=== PATIENT | female | born 1990 | race Caucasian/White ===

== ENCOUNTER 2016-05-19 22:22 | Outpatient (CLI) | payer OTHER ==
[~2016-05-19] VITALS: Ht 160 cm; Wt 92.5 kg
[~2016-05-19 22:22] MED LIST: ?ANTIBIOTIC; ACET1TAB43 PO; CIPR-225 PO; DIPH1TAB25 PO; DOCU100C37 PO; FERR-74 PO; FRS325T PO; HYDR-3812 PO; HYOS0.1217 PO; IBUP-1773 PO; MEDR150D8 IM; OMEP20TA7 PO; ONDA4TAB8 PO; ONDA4TAB8 SL; PREN-93 PO; PREN1TAB71 PO
[2016-05-19 22:38] VITALS: BP 131/81
[2016-05-19 22:52] LABS: BILIRUBIN,URINE 1+ (NEGATIVE); KETONES,URINE NEGATIVE (NEGATIVE); LEUKOCYTE ESTERASE ,URINE 1+ (NEGATIVE); NITRITE,URINE NEGATIVE (NEGATIVE); PH,URINE 6.5 (5-9); PROTEIN,URINE 2+ (NEGATIVE); UROBILINOGEN,URINE 4 MG/DL (NORMAL)
[2016-05-19] MEDS ORDERED: PREN-37 PO (22:55)
[2016-05-19] MEDS ORDERED: ONDANSETRON 4 MG/2 ML (SDV) Z0FRAN IVP ONE (23:15)
[2016-05-19] MEDS ORDERED: D5 LR IV SOLUTION 1,000 ML IV ONE (23:15)
[2016-05-19 23:48] LABS: BASOPHILS % (AUTO) 0 % (0-10); EOSINOPHILS # (AUTO) 0.2 10^3/uL (0.0-0.3); EOSINOPHILS % (AUTO) 2 % (0-10); LYMPHOCYTES # (AUTO) 1.7 X 10^3 (1.0-4.0); LYMPHOCYTES % (AUTO) 13 % (12-44); MEAN CORPUSCULAR HEMOGLOBIN 32 PG (25-34); MEAN CORPUSCULAR HGB CONC 36 G/DL (32-36); MEAN CORPUSCULAR VOLUME 88 FL (80-99); MEAN PLATELET VOLUME 9.5 FL (7.4-10.4); MONOCYTES # (AUTO) 1.1 X 10^3 (0.0-1.0); MONOCYTES % (AUTO) 9 % (0-12); NEUTROPHILS # (AUTO) 9.7 X 10^3 (1.8-7.8); NEUTROPHILS % (AUTO) 77 % (42-75); PLATELET COUNT 257 10^3/uL (130-400); RED CELL DISTRIBUTION WIDTH 12.4 % (10.0-14.5); WHITE BLOOD COUNT 12.7 10^3/uL (4.3-11.0)
[2016-05-20] LABS: ALANINE AMINOTRANSFERASE 9 U/L (0-55); ALBUMIN 3.4 G/DL (3.2-4.5); AMYLASE 65 U/L (25-125); ANION GAP 12 MMOL/L (5-14); ASPARTATE AMINO TRANSFERASE 9 U/L (5-34); BILIRUBIN,TOTAL 0.3 MG/DL (0.1-1.0); BLOOD UREA NITROGEN 7 MG/DL (7-18); BUN/CREATININE RATIO 10; CALCIUM 8.5 MG/DL (8.5-10.1); CARBON DIOXIDE 18 MMOL/L (21-32); CHLORIDE 107 MMOL/L (98-107); CREATININE SERUM 0.69 MG/DL (0.60-1.30); GFR ESTIMATED > 60; GLUCOSE 84 MG/DL (70-105); LIPASE 41 U/L (8-78); POTASSIUM 3.4 MMOL/L (3.6-5.0); SODIUM 137 MMOL/L (135-145)
--- NOTE | 2016-05-20 11:21 | Physician Query-Final Dx ---
DEBBY IRWIN 05/20/16 1121: Clinic Account Progress/Dx Physician Query: Please give diagnosis Date of Service May 19, 2016 at 22:22 JACOBY JOHN MD 05/21/16 1303: Clinic Account Progress/Dx DIAGNOSIS: Diagnosis Nausea and vomiting in DEBBY IRWIN May 20, 2016 11:21 JACOBY JOHN MD May 21, 2016 13:03
[2016-08-14] MEDS ORDERED: IBUP-1773 PO (09:59)
== END 2016-05-20 00:57 | disposition home or self-care (01) ==
LOC: WSo 22:22 → LDRP 22:23 → WSo 05-20 00:57
PROVIDERS: ATTEND Obstetrics & Gynecology
DX: O21.9 Vomiting of pregnancy, unspecified (principal); Z3A.27 27 weeks gestation of pregnancy
CPT/HCPCS: 36415; 80053; 81000; 82150; 83690; 85025; 96360; 99213

== ENCOUNTER → 2016-07-16 | Outpatient (CLI) | payer OTHER ==
[~2016-07-16] MED LIST changes: +PREN-37 PO
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
--- NOTE | 2016-07-16 16:57 | Diagnostic Imaging Report ---
INDICATION: Decreased movements GESTATIONAL AGE: Estimated gestational age by first sono is 36 weeks and 2 days COMPARISON: None available. Biophysical Profile Score: Movement: 2 Breathin Tone: 2 Fluid: 2 Total: 12/07 Heart Rate: 140 BPM Presentation is cephalic. Placenta is posterior. SOWMYA is 8.95 cm. The single largest vertical pocket is 4 cm. Average ultrasound age is 35 weeks and 3 days (+/-3 weeks and 0 days). Estimated weight is 2612 g (+/-381 g). Based on AUA, this is 38 percentile. Based on LMP, this is 24th percentile. IMPRESSION: 1. Normal Biophysical Profile Score. 2. weight and percentiles are described above. Dictated by: Dictated on workstation # [id number]
== END ==
LOC: RAD 14:35
PROVIDERS: ATTEND Obstetrics & Gynecology
DX: O36.8131 Decreased fetal movements, third trimester, fetus 1 (principal); Z3A.35 35 weeks gestation of pregnancy
CPT/HCPCS: 76805; 76819

== ENCOUNTER 2016-07-18 19:35 | Outpatient (CLI) | payer OTHER ==
[~2016-07-18] VITALS: Ht 165.1 cm; Wt 91.6 kg
--- OUTSIDE RECORDS SUMMARY | 2016-07-18 19:39 | XMS REPORT | Continuity of Care Document ---
Author Author Replaced By [facility] Address Unknown Phone Unavailable Allergies Active Description Code Type Severity Reaction Onset Reported/Identified Relationship to Patient Clinical Status Yes No Known Drug Allergies [id number] Drug Allergy Unknown N/ A 01/18/2011 Medications [...] USE DISORDER COMP PREG/CHILDBIRT 01/22/2011 Ot V06.4 [id number] 01/22/2011 Ot V27.0 DELIVER-SINGLE LIVEBORN 02/04/2011 KAREN [...] NEC-DELIV 12/26/2014 PAM KIMBALL DO Ot V06.1 [id number], COMBINED [ 12/26/2014 PAM KIMBALL DO Ot [...] By Performed On 73.4 01/18/2011 73.59 01/20/2011 [id number] TEST, URINE (IN-HOUSE) 04/20/2014 73.59 12/25/2014 Results [...] 20:02 Serum or plasma choriogonadotropin measurement (units/volume) 52049 m[iU]/mL <5 Complete urinalysis with reflex to [...] Status Pt. Type Provider Facility Loc./Unit Complaint [id number] 04/20/2014 11:13:00 04/20/2014 23: 59:59 [facility] KAREN HARRIS DO
[2016-07-18 19:50] VITALS: BP 136/83
[2016-07-18 19:53] LABS: BILIRUBIN,URINE NEGATIVE (NEGATIVE); KETONES,URINE NEGATIVE (NEGATIVE); LEUKOCYTE ESTERASE ,URINE 1+ (NEGATIVE); NITRITE,URINE NEGATIVE (NEGATIVE); PH,URINE 6.5 (5-9); PROTEIN,URINE 1+ (NEGATIVE); UROBILINOGEN,URINE NORMAL (NORMAL)
[2016-07-18 20:02] LABS: WBC,URINE 0-2 /HPF
--- NOTE | 2016-07-19 14:44 | Physician Query-Final Dx ---
ELOY DORAN 07/19/16 1444: Clinic Account Progress/Dx Physician Query: Please give diagnosis Date of Service Jul 18, 2016 at 19:35 JACOBY JOHN MD 07/20/16 0924: Clinic Account Progress/Dx DIAGNOSIS: Diagnosis Abdominal pain in ANDREEA,ELOY Jul 19, 2016 14:44 JACOBY JOHN MD Jul 20, 2016 09:24
[2016-08-14] MEDS ORDERED: IBUP-1773 PO (09:59)
== END 2016-07-18 21:00 | disposition home or self-care (01) ==
LOC: LDRP 19:35 → WSo 19:35
PROVIDERS: ATTEND Obstetrics & Gynecology
DX: O99.89 Other specified diseases and conditions complicating pregnancy, childbirth and the puerperium (principal); R10.9 Unspecified abdominal pain
CPT/HCPCS: 81000; 99213

== ENCOUNTER 2016-08-11 12:03 | Outpatient (CLI) | payer OTHER ==
[~2016-08-11] VITALS: Ht 167.6 cm; Wt 94.1 kg
[2016-08-11 12:33] LABS: BILIRUBIN,URINE NEGATIVE (NEGATIVE); KETONES,URINE NEGATIVE (NEGATIVE); LEUKOCYTE ESTERASE ,URINE 1+ (NEGATIVE); NITRITE,URINE NEGATIVE (NEGATIVE); PH,URINE 7 (5-9); PROTEIN,URINE 1+ (NEGATIVE); UROBILINOGEN,URINE NORMAL (NORMAL)
[2016-08-11 12:44] LABS: WBC,URINE 0-2 /HPF
[2016-08-11 13:15] VITALS: BP 123/82
--- NOTE | 2016-08-11 14:51 | Diagnostic Imaging Report ---
EXAMINATION: OB ultrasound. INDICATION: Biophysical profile evaluation for decreased movement. FINDINGS: The heart rate is 144 BPM. The presentation is cephalic. There is an adequate amount of amniotic fluid with a total score of 8.4. There are normal parameters of the biophysical profile seen with a total score of 8 out of 8 points. IMPRESSION: The total biophysical profile score is 8 out of 8 points. Dictated by: Dictated on workstation # [id number]
--- NOTE | 2016-08-12 14:52 | Physician Query-Final Dx ---
DEBBY IRWIN 08/12/16 1452: Clinic Account Progress/Dx Physician Query: Please give diagnosis Date of Service Aug 11, 2016 at 12:03 JACOBY JOHN MD 08/18/16 0846: Clinic Account Progress/Dx DIAGNOSIS: Diagnosis Contractions in third trimester DEBBY IRWIN Aug 12, 2016 14:52 JACOBY JOHN MD Aug 18, 2016 08:46
[2016-08-14] MEDS ORDERED: IBUP-1773 PO (09:59)
== END 2016-08-11 14:20 | disposition home or self-care (01) ==
LOC: LDRP 12:03 → WSo 12:03
PROVIDERS: ATTEND Obstetrics & Gynecology
DX: O47.1 False labor at or after 37 completed weeks of gestation (principal); Z3A.39 39 weeks gestation of pregnancy
CPT/HCPCS: 76819; 81000; 87088; 99213

== ENCOUNTER 2016-08-12 10:56 | Inpatient (IN) | payer OTHER ==
[~2016-08-12] VITALS: Ht 167.6 cm; Wt 94.1 kg
[2016-08-12] VITALS (41 sets, daily range): BP systolic 120–165; BP diastolic 68–91
[2016-08-12] MEDS ORDERED: D5 LR IV SOLUTION 1,000 ML IV ONE (11:06)
[2016-08-12] MEDS ORDERED: AMPICILLIN 2000 MG INJECTION (IM/IV) ONE (11:06)
[2016-08-12] MEDS ORDERED: NS (IVPB) 50 ML ONE (11:07)
[2016-08-12] MEDS ORDERED: D5 LR IV SOLUTION 1,000 ML IV SCH (11:32)
[2016-08-12] MEDS ORDERED: MINERAL OIL CONCENTRATE 99.9% 15 ML UDC TOP PRN (11:45)
[2016-08-12] MEDS ORDERED: LIDOCAINE/EPI 1%-1:200,000 (XYLOCAINE) 30 ML VIAL INJ PRN (11:45)
[2016-08-12] MEDS ORDERED: CATHETER FLUSH 10 ML SYR IV PRN (11:45)
[2016-08-12] MEDS ORDERED: AMPICILLIN INJECTION 2,000 MG in NS (IVPB) 50 ML IV ONE (12:00)
[2016-08-12 12:04] LABS: BASOPHILS % (AUTO) 0 % (0-10); EOSINOPHILS # (AUTO) 0.1 10^3/uL (0.0-0.3); EOSINOPHILS % (AUTO) 1 % (0-10); LYMPHOCYTES # (AUTO) 2.5 X 10^3 (1.0-4.0); LYMPHOCYTES % (AUTO) 25 % (12-44); MEAN CORPUSCULAR HEMOGLOBIN 30 PG (25-34); MEAN CORPUSCULAR HGB CONC 35 G/DL (32-36); MEAN CORPUSCULAR VOLUME 86 FL (80-99); MEAN PLATELET VOLUME 10.2 FL (7.4-10.4); MONOCYTES # (AUTO) 1.1 X 10^3 (0.0-1.0); MONOCYTES % (AUTO) 11 % (0-12); NEUTROPHILS # (AUTO) 6.5 X 10^3 (1.8-7.8); NEUTROPHILS % (AUTO) 63 % (42-75); PLATELET COUNT 249 10^3/uL (130-400); RED BLOOD COUNT 4.57 10^6/uL (4.35-5.85); RED CELL DISTRIBUTION WIDTH 13.5 % (10.0-14.5); WHITE BLOOD COUNT 10.2 10^3/uL (4.3-11.0)
[2016-08-12] MEDS: AMPICILLIN INJECTION 1,000 MG in NS (IVPB) 50 ML IV SCH ×2 (15:51→19:20)
[2016-08-12] MEDS ORDERED: OXYTOCIN/NORMAL SALINE 500 ML IV SCH ×2 (17:14→19:49)
[2016-08-12] MEDS ORDERED: SUFENTA 0.6MCG/ML BUPIVA 0.125 100 ML ONE (17:56)
[2016-08-12] MEDS ORDERED: fentaNYL INJECTION 100 MCG/2 ML AMP IVP ONE ×2 (18:00→18:45)
[2016-08-12] MEDS ORDERED: BUPIVACAINE 0.25% 30 ML (SENSORCAINE) VIAL ONE (18:04)
[2016-08-12] MEDS ORDERED: LACTATED RINGERS 1,000 ML IV SCH (18:32)
[2016-08-12] MEDS ORDERED: BUPIVACAINE 0.25% 30 ML (SENSORCAINE) VIAL INJ ONE (18:45)
[2016-08-12] MEDS ORDERED: NALOXONE 0.4 MG/ML 1 ML (NARCAN) VIAL IV PRN ×2 (18:45)
[2016-08-12] MEDS ORDERED: ONDANSETRON 4 MG/2 ML (SDV) Z0FRAN IV PRN (18:45)
[2016-08-12] MEDS ORDERED: METOCLOPRAMIDE INJ 10 MG/2 ML (REGLAN) IV PRN (18:45)
[2016-08-12] MEDS ORDERED: diphenhydrAMINE 50 MG/ML INJ (BENADRYL) IV PRN (18:45)
[2016-08-12] MEDS ORDERED: EPIDURAL (SUFENTA 0.6MCG/ML BUPIVA 0.125%) 100 ML BAG EPI SCH (18:45)
--- NOTE | 2016-08-12 19:59 | OB Labor & Delivery Record ---
Vag Delivery Note Vag Delivery Note Date of Delivery: 08/12/16 Preoperative Diagnosis: Cris Oglesby is a 25 year old at 39 3/7 weeks who presented in labor, GBS + Postoperative Diagnosis: Same Surgeon: PAM KIMBALL Anesthesia:epidural Delivery Type: Findings: [] Viable male , apgars 9/9, weight 6#5oz Lacerations: Intact placenta with 3 vessel cord. Nuchal cord x 1 delivered through, compound presentation with hand at chin, no body cord or shoulder dystocia Estimated Blood Loss: 150 ml Complications: None Condition: Stable Description of Procedure: The patient is a 25 year old at 39 3/7 weeks who presented in labor, GBS + . She was admitted and informed consent was obtained. Ampicillin was started for GBS+ Received 3 doses received (4 grams total). Her labor course was remarkable for AROM, epidural and augmentation with pitocin but only 2 mu. She progressed to complete dilatation and began to push. She was then set up for delivery. The 's head was delivered atraumatically in the TERELL position/compound presentation. The shoulders and remainder of the 's body were then delivered without difficulty. Upon delivery, the head was held below the level of the perineum and the mouth and nares were bulb suctioned. The cord was doubly clamped and cut and the infant was handed off to the pediatric staff. An intact placenta with 3-vessel cord delivered via Johan and there was found to be minimal bleeding.~ Vigorous fundal massage was performed and the fundus was found to be firm. IV oxytocin was given. Examination of the vagina and perineum revealed a r periurethral laceration that was not repaired. Following the delivery, sponge, instrument and needle counts were correct. Mom and baby were both in stable condition in the labor suite. Vitals - Labs Labs Laboratory Tests 08/12/16 11:28: White Blood Count 10.2, Red Blood Count 4.57, Hemoglobin 13.8, Hematocrit 40, Mean Corpuscular Volume 86, Mean Corpuscular Hemoglobin 30, Mean Corpuscular Hemoglobin Concent 35, Red Cell Distribution Width 13.5, Platelet Count 249, Mean Platelet Volume 10.2, Neutrophils (%) (Auto) 63, Lymphocytes (%) (Auto) 25 , Monocytes (%) (Auto) 11, Eosinophils (%) (Auto) 1, Basophils (%) (Auto) 0, Neutrophils # (Auto) 6.5, Lymphocytes # (Auto) 2.5, Monocytes # (Auto) 1.1H, Eosinophils # (Auto) 0.1, Basophils # (Auto) 0.0 PAM KIMBALL DO Aug 12, 2016 19:59
[2016-08-12] MEDS ORDERED: DIBUCAINE (NUPERCAINAL) 1% OINT 30 GM TOP PRN (20:00)
[2016-08-12] MEDS ORDERED: APAP 300 MG/CODEINE 30 MG (TYLENOL #3) TAB PO PRN (20:00)
[2016-08-12] MEDS ORDERED: WITCH HAZEL(TUCKS) 40 EA JAR TOP PRN (20:00)
[2016-08-12] MEDS ORDERED: BENZOCAINE/MENTHOL (DERMOPLAST) 56 ML CAN TP PRN (20:00)
[2016-08-12] MEDS ORDERED: TETANUS,DIPTH,PERTUSS P/F (BOOSTRIX) 0.5 ML VIAL IM ONE (20:00)
[2016-08-12] MEDS ORDERED: MEASLES,MUMPS,RUBELLA 1 EA INJ SQ ONE (20:00)
[2016-08-12] MEDS ORDERED: CATHETER FLUSH 10 ML SYR IV SCH (22:00)
[2016-08-12] MEDS: IBUPROFEN 600 MG (MOTRIN) TAB PO SCH (22:38)
[2016-08-13] VITALS: BP 116/63
[2016-08-13 04:00] VITALS: BP 128/84
[2016-08-13] MEDS: IBUPROFEN 600 MG (MOTRIN) TAB PO SCH ×3 (04:03→17:04)
[2016-08-13 06:47] LABS: BASOPHILS % (AUTO) 0 % (0-10); EOSINOPHILS # (AUTO) 0.1 10^3/uL (0.0-0.3); EOSINOPHILS % (AUTO) 1 % (0-10); LYMPHOCYTES # (AUTO) 3.4 X 10^3 (1.0-4.0); LYMPHOCYTES % (AUTO) 28 % (12-44); MEAN CORPUSCULAR HEMOGLOBIN 30 PG (25-34); MEAN CORPUSCULAR HGB CONC 34 G/DL (32-36); MEAN CORPUSCULAR VOLUME 88 FL (80-99); MEAN PLATELET VOLUME 10.7 FL (7.4-10.4); MONOCYTES # (AUTO) 0.9 X 10^3 (0.0-1.0); MONOCYTES % (AUTO) 8 % (0-12); NEUTROPHILS # (AUTO) 7.6 X 10^3 (1.8-7.8); NEUTROPHILS % (AUTO) 63 % (42-75); PLATELET COUNT 194 10^3/uL (130-400); RED BLOOD COUNT 4.25 10^6/uL (4.35-5.85); RED CELL DISTRIBUTION WIDTH 13.5 % (10.0-14.5)
[2016-08-13 08:00] VITALS: BP 132/87
[2016-08-13] MEDS ORDERED: TETANUS,DIPTH,PERTUSS P/F (BOOSTRIX) 0.5 ML VIAL IM ONE (10:39)
--- NOTE | 2016-08-13 10:42 | Postpartum Progress Note ---
Note Note Day # 1 Subjective: Patient is without complaints. Ambulating, voiding. Tolerating a regular diet without nausea or vomiting. Normal lochia. Pain is well controlled with oral pain medications. clara Objective: Vital Sign - Last 12Hours 08/13/16 08/13/16 08/13/16 00:00 04:00 08:00 Temp 96.8 96.0 97.0 Pulse 65 57 90 Resp 17 18 20 B/P (MAP) 116/63 128/84 132/87 Pulse Ox 97 99 98 O2 Delivery Room Air Room Air Room Air Intake and Output 08/13/16 00:00 Intake Total 2150 ml Balance 2150 ml Laboratory Tests Test 08/12/16 11:28 08/13/16 06:00 Range/Units White Blood Count 10.2 12.0 H 4.3-11.0 10^3/uL Red Blood Count 4.57 4.25 L 4.35-5.85 10^6/uL Hemoglobin 13.8 12.8 11.5-16.0 G/DL Hematocrit 40 38 35-52 % Mean Corpuscular Volume 86 88 80-99 FL Mean Corpuscular Hemoglobin 30 30 25-34 PG Mean Corpuscular Hemoglobin Concent 35 34 32-36 G/DL Red Cell Distribution Width 13.5 13.5 10.0-14.5 % Platelet Count 249 194 130-400 10^3/uL Mean Platelet Volume 10.2 10.7 H 7.4-10.4 FL Neutrophils (%) (Auto) 63 63 42-75 % Lymphocytes (%) (Auto) 25 28 12-44 % Monocytes (%) (Auto) 11 8 0-12 % Eosinophils (%) (Auto) 1 1 0-10 % Basophils (%) (Auto) 0 0 0-10 % Neutrophils # (Auto) 6.5 7.6 1.8-7.8 X 10^3 Lymphocytes # (Auto) 2.5 3.4 1.0-4.0 X 10^3 Monocytes # (Auto) 1.1 H 0.9 0.0-1.0 X 10^3 Eosinophils # (Auto) 0.1 0.1 0.0-0.3 10^3/uL Basophils # (Auto) 0.0 0.0 0.0-0.1 10^3/uL Physical Exam: General - Alert and oriented, no apparent distress Abdomen - Soft, appropriately tender to palpation, non-distended, fundus firm at umbilicus Extremities - no edema, negative Ranulfo's bilaterally Assessment: 1. post- day # 1, status post vaginal delivery. Recovering well, hemodynamically stable Plan: Routine care. Encourage breast feeding. Encourage ambulation. Ferrous sulfate supplementation. Plan for discharge [] Vitals - Labs Vital Signs - I&O Vital Signs Date Time Temp Pulse Resp B/P (MAP) Pulse Ox O2 Delivery O2 Flow Rate FiO2 08/13/16 08:00 97.0 90 20 132/87 98 Room Air 08/13/16 04:00 96.0 57 18 128/84 99 Room Air 08/13/16 00:00 96.8 65 17 116/63 97 Room Air 08/12/16 22:15 97.6 76 18 130/77 97 Room Air 08/12/16 21:55 68 18 131/77 100 Room Air 08/12/16 21:25 70 18 135/73 100 Room Air 08/12/16 20:45 99.0 86 18 141/81 100 Room Air 08/12/16 20:30 99.1 56 18 144/91 100 Room Air 08/12/16 20:15 99.3 72 18 141/85 100 Room Air 08/12/16 20:00 99.6 84 18 136/86 100 Room Air 08/12/16 19:45 99.4 85 18 140/73 100 Room Air 08/12/16 19:30 75 18 155/81 08/12/16 19:15 72 18 142/85 08/12/16 18:56 81 18 132/68 100 Room Air 08/12/16 18:52 89 18 137/74 100 Room Air 08/12/16 18:41 87 18 131/74 98 Room Air 08/12/16 18:35 89 18 138/76 98 Room Air 08/12/16 18:31 93 18 140/87 100 Room Air 08/12/16 18:28 95 18 145/86 98 Room Air 08/12/16 18:25 80 18 153/76 97 Room Air 08/12/16 18:22 91 18 165/78 97 Room Air 08/12/16 18:06 67 18 154/84 100 Room Air 08/12/16 17:37 99.8 67 18 131/73 08/12/16 17:22 72 18 128/76 08/12/16 17:07 80 18 126/82 08/12/16 16:50 79 18 128/79 08/12/16 16:36 77 18 129/76 08/12/16 16:21 91 18 130/84 08/12/16 16:10 83 18 131/83 08/12/16 15:51 84 18 132/83 08/12/16 15:35 81 18 133/81 08/12/16 15:22 81 18 135/88 08/12/16 14:51 80 18 135/86 08/12/16 14:27 89 18 125/82 08/12/16 14:22 98.9 85 18 131/84 08/12/16 14:06 89 18 125/82 08/12/16 13:36 84 18 126/84 08/12/16 13:21 95 18 120/82 08/12/16 13:07 88 18 128/84 08/12/16 12:50 78 18 123/78 08/12/16 12:36 77 18 123/85 08/12/16 12:23 87 18 124/83 08/12/16 12:05 88 18 126/85 08/12/16 11:24 99.8 80 18 132/77 I & O 08/13/16 07:00 Intake Total 2150 ml Balance 2150 ml Labs Laboratory Tests 08/12/16 11:28: White Blood Count 10.2, Red Blood Count 4.57, Hemoglobin 13.8, Hematocrit 40, Mean Corpuscular Volume 86, Mean Corpuscular Hemoglobin 30, Mean Corpuscular Hemoglobin Concent 35, Red Cell Distribution Width 13.5, Platelet Count 249, Mean Platelet Volume 10.2, Neutrophils (%) (Auto) 63, Lymphocytes (%) (Auto) 25 , Monocytes (%) (Auto) 11, Eosinophils (%) (Auto) 1, Basophils (%) (Auto) 0, Neutrophils # (Auto) 6.5, Lymphocytes # (Auto) 2.5, Monocytes # (Auto) 1.1H, Eosinophils # (Auto) 0.1, Basophils # (Auto) 0.0 08/13/16 06:00: White Blood Count 12.0H, Red Blood Count 4.25L, Hemoglobin 12.8, Hematocrit 38, Mean Corpuscular Volume 88, Mean Corpuscular Hemoglobin 30, Mean Corpuscular Hemoglobin Concent 34, Red Cell Distribution Width 13.5, Platelet Count 194, Mean Platelet Volume 10.7H, Neutrophils (%) (Auto) 63, Lymphocytes (%) (Auto) 28 , Monocytes (%) (Auto) 8, Eosinophils (%) (Auto) 1, Basophils (%) (Auto) 0, Neutrophils # (Auto) 7.6, Lymphocytes # (Auto) 3.4, Monocytes # (Auto) 0.9, Eosinophils # (Auto) 0.1, Basophils # (Auto) 0.0 PAM KIMBALL DO Aug 13, 2016 10:42
[2016-08-13] MEDS: DOCUSATE SODIUM 100 MG (COLACE) CAP PO SCH ×2 (10:48→14:23)
[2016-08-13] MEDS: PRENATAL VITAMIN 1 EA TAB PO SCH (10:48)
[2016-08-13] MEDS: FERROUS SULF 325 MG (IRON) TAB PO SCH (10:48)
[2016-08-13 11:56] VITALS: BP 126/84
--- NOTE | 2016-08-13 14:08 | Anesthesia-Regional Post-Op ---
Regional Patient Condition Mental Status: Alert, Oriented x3 Circulation: Same as Pre-Op Headache: Absent Sensation: Full Recovery Motor Block: Absent Post Op Complications Complications None Follow Up Care/Instructions Patient Instructions None needed. Anesthesia/Patient Condition Patient is doing well, no complaints, stable vital signs, no apparent adverse anesthesia problems. MATI VEGA DO Aug 13, 2016 14:08
[2016-08-13 16:00] VITALS: BP 117/79
[2016-08-14 00:04] VITALS: BP 127/82
[2016-08-14] MEDS: IBUPROFEN 600 MG (MOTRIN) TAB PO SCH ×2 (00:04→08:00)
[2016-08-14] MEDS: DOCUSATE SODIUM 100 MG (COLACE) CAP PO SCH ×2 (00:04→08:07)
[2016-08-14 05:00] VITALS: BP_SYST 111; BP_SYST 148; BP_DIAS 63; BP_DIAS 96
[2016-08-14 07:59] VITALS: BP 129/84
[2016-08-14] MEDS: FERROUS SULF 325 MG (IRON) TAB PO SCH (08:07)
[2016-08-14] MEDS: PRENATAL VITAMIN 1 EA TAB PO SCH (08:07)
[2016-08-14] MEDS ORDERED: IBUP-1773 PO (09:59)
--- NOTE | 2016-08-14 10:01 | Discharge Inst-Women's Service ---
Discharge Inst-Women's Serv Depart Medication/Instructions New, Converted or Re-Newed RX: Transmitted to Pharmacy Final Diagnosis GBS + vaginal delivery Consults/Follow Up Additional Follow Up: Yes (6 weeks) Activity Activity: Activity as Tolerated Driving Instructions: You May Drive NO SMOKING: NO SMOKING Nothing Inside Vagina: No Douching, No [place], No Tampons Diet Discharge Diet: No Restrictions Symptoms to Report to : Swelling Increased, Bleeding Excessive, Fever Over 101 Degrees F, Vaginal Bleeding Increase, Vaginal Discharge Foul For Any Problems or Questions: Contact Your Physician PAM KIMBALL DO Aug 14, 2016 10:01
--- NOTE | 2016-08-14 10:02 | Postpartum Progress Note ---
Note Note Day # 1 Subjective: Patient is without complaints. Ambulating, voiding. Tolerating a regular diet without nausea or vomiting. Normal lochia. Pain is well controlled with oral pain medications. bottle feeding Physical Exam: General - Alert and oriented, no apparent distress Abdomen - Soft, appropriately tender to palpation, non-distended, fundus firm at umbilicus Extremities - no edema, negative Ranulfo's bilaterally Assessment: 1. post- day # 1, status post vaginal delivery. Recovering well, hemodynamically stable Plan: Routine care. Encourage breast feeding. Encourage ambulation. Ferrous sulfate supplementation. Plan for discharge today Vitals - Labs Vital Signs - I&O Vital Signs Date Time Temp Pulse Resp B/P (MAP) Pulse Ox O2 Delivery O2 Flow Rate FiO2 08/14/16 07:59 96.6 108 18 129/84 99 Room Air 08/14/16 05:00 98.1 54 18 148/96 100 Room Air 08/14/16 00:04 97.0 56 18 127/82 98 Room Air 08/13/16 16:00 98.6 76 18 117/79 98 Room Air 08/13/16 11:56 98.1 77 20 126/84 93 Room Air PAM KIMBALL DO Aug 14, 2016 10:02
== END 2016-08-14 14:40 | disposition home or self-care (01) | DRG 775 ==
LOC: LDRP 10:56
PROVIDERS: ADMIT Obstetrics & Gynecology; ATTEND Obstetrics & Gynecology
PROC: 10E0XZZ Delivery of Products of Conception, External Approach (ICD-10-PCS; principal; 2016-08-12)
DX: O99.824 Streptococcus B carrier state complicating childbirth (principal); O69.81X0 Labor and delivery complicated by cord around neck, without compression, not applicable or unspecified; Z3A.39 39 weeks gestation of pregnancy; Z37.0 Single live birth; Z23 Encounter for immunization
CPT/HCPCS: 36415; 85025; 86850; 86900; 86901; 90715

== ENCOUNTER → 2018-05-01 | Emergency (ER) | payer OTHER ==
[~2018-05-01] VITALS: Ht 167.6 cm; Wt 81.6 kg
[~2018-05-01] MED LIST changes: +ACHD5005 PO; -FERR-74 PO; +FERR325T18 PO; -HYDR-3812 PO; +IOHEXOL 350 MG/ML 100 ML (OMNIPAQUE 350) VIAL IV ONE; +LACTATED RINGERS 1,000 ML IV ONE; +NS 100 ML (IVPB) BAG IV ONE; +ONDA8TAB13 PO; +ONDANSETRON 4 MG/2 ML (SDV) Z0FRAN IVP ONE; +PANT40TA2 PO; +PANTOPRAZOLE 40 MG (PROTONIX) VIAL IV ONE; +RX-ONDANSETRON 4 MG ODT (ZOFRAN) PPK #4 PO STA
--- OUTSIDE RECORDS SUMMARY | 2018-05-01 21:37 | XMS REPORT ---
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 Name Role Phone BRUNILDA PAINTING Unavailable PROBLEMS Type Condition ICD9-CM Code [id number] Code Onset Dates Condition Status SNOMED Code Problem Adjustment disorder with disturbance of emotion F43.29 Active 75716804 Problem Normal in first trimester Z34.91 Active 03296596 Problem Nausea/vomiting in O21.9 Active 07352680 ALLERGIES No Known Allergies ENCOUNTERS Encounter Location Date Diagnosis [facility] [address] [id number] Jun, External hemorrhoid K64.4 [facility] [address] [address] 15 Sep, 2016 Adjustment disorder with disturbance of emotion F43.29 and Post- depression F53 [facility] [address] [address] Dec, [facility] [address] [address] Dec, [facility] [address] [id number] Nov, Normal in first trimester Z34.91 ; 7 weeks gestation of Z3A.01 and Nausea/vomiting in O21.[address] [id number] Nov, [facility] [address] [id number] Nov, Positive test Z32.01 [facility] [address] [id number] Nov, Dental caries K02.9 and Dental examination Z01.20 [facility] [address] [id number] August, Menometrorrhagia N92.1 and Encounter for initial prescription of contraceptive pills Z30.[address] [place] [id number] Jun, Abnormal uterine bleeding N93.9 [facility] [address] [address] Jun, Elevated liver enzymes R74.8 and Urinary tract infection without hematuria, site unspecified N39.0 [facility] [address] [address] Jun, Elevated liver enzymes R74.8 and Urinary tract infection without hematuria, site unspecified N39.0 [facility] [id number] [place] [address] Jun, [facility] [id number] [place] [address] Jun, [facility] [id number] [place] [address] Jun, Elevated liver enzymes R74.8 and Urinary tract infection without hematuria, site unspecified N39.0 [facility] [id number] [place] [address] Jun, Elevated liver enzymes R74.8 ; Urinary tract infection without hematuria, site unspecified N39.0 and Gastritis K29.70 [facility] [id number] [place] [address] Jun, [id number] [place] [id number] Apr, Evaluation for contraceptive injection Z30.013 [address] [place] [id number] Jun, [facility] [address] [address] Jun, [facility] [address] [address] Apr, [facility] [address] [address] Apr, [facility] [address] [id number] [id number] Oct, [facility] [id number] [id number] Jul, [facility] [address] [id number] Jun, [facility] [id number] [place] [address] Mar, [facility] [address] [id number] [address] Dec, [facility] [id number] [place] [address] Dec, [facility] [address] [address] Nov, [facility] [id number] [address] Oct, [facility] [address] [address] Sep, IMMUNIZATIONS No Known Immunizations SOCIAL HISTORY Never Assessed REASON FOR VISIT possible wart around rectum Nirav RN PLAN OF CARE Activity Details Follow Up prn Reason: VITAL SIGNS Height 66.0 in 2017-07-13 Weight 214.2 lbs 2017-07-13 Temperature 98.6 degrees Fahrenheit 2017-07-13 Heart Rate 106 bpm 2017-07-13 Respiratory Rate 18 2017-07-13 BMI 34.57 kg/m2 2017-07-13 Blood pressure systolic 122 mmHg 2017-07-13 Blood pressure diastolic 78 mmHg 2017-07-13 MEDICATIONS No Known Medications RESULTS No Results PROCEDURES No Known procedures INSTRUCTIONS MEDICATIONS ADMINISTERED No Known Medications MEDICAL (GENERAL) HISTORY Type Description Date Surgical History tonsillectomy 1998 Hospitalization History childbirth, surgery
--- OUTSIDE RECORDS SUMMARY | 2018-05-01 21:37 | XMS REPORT ---
Author Author TRE DAY [facility] Address [address] [place] [address] Care Team Providers Care Deburring Technician Name Role Phone DAYTRE SAMUEL Unavailable PROBLEMS Type Condition ICD9-CM Code [id number] Code Onset Dates Condition Status SNOMED Code Problem Adjustment disorder with disturbance of emotion F43.29 Active 44608184 Problem Normal in first trimester Z34.91 Active 32279169 Problem Nausea/vomiting in O21.9 Active 30557132 ALLERGIES No Known Allergies ENCOUNTERS Encounter Location Date Diagnosis [address] [id number] Jan, Unspecified abdominal pain R10.9 ; Epigastric pain R10.13 ; Acute pulpitis K04.01 and Jaw pain R68.84 [facility] [id number] [place] [id number] Jun, External hemorrhoid K64.4 [place] [address] [id number] 15 Sep, 2016 Adjustment disorder with disturbance of emotion F43.29 and Post- depression F53 [place] [address] [id number] Dec, [place] [address] [address] Dec, [place] [id number] [place] [id number] Nov, [address] [id number] Nov, Normal in first trimester Z34.91 ; 7 weeks gestation of Z3A.01 and Nausea/vomiting in O21.[address] [id number] Nov, Positive test Z32.01 [facility] [address] [id number] Nov, Dental caries K02.9 and Dental examination Z01.20 [facility] [id number] [place] [id number] August, Menometrorrhagia N92.1 and Encounter for initial prescription of contraceptive pills Z30.011 [facility] [id number] [place] [id number] Jun, Abnormal uterine bleeding N93.9 [facility] [id number] [place] [address] Jun, Elevated liver enzymes R74.8 and Urinary tract infection without hematuria, site unspecified N39.0 [facility] [id number] [place] [address] Jun, Elevated liver enzymes R74.8 and Urinary tract infection without hematuria, site unspecified N39.0 [facility] [id number] [place] [address] Jun, [facility] [id number] [place] [address] Jun, [facility] [id number] [place] [address] Jun, Elevated liver enzymes R74.8 and Urinary tract infection without hematuria, site unspecified N39.0 [facility] [id number] [place] [address] Jun, Elevated liver enzymes R74.8 ; Urinary tract infection without hematuria, site unspecified N39.[address] [facility] [id number] [place] [address] 07 Jun, 2015 [facility] [address] [id number] [id number] Apr, Evaluation for contraceptive injection Z30.013 [facility] [address] [id number] [id number] Jun, [facility] [address] [address] Jun, [facility] [address] [address] Apr, [facility] [address] [address] Apr, [facility] [id number] [place] [id number] Oct, [facility] [id number] [place] [id number] Jul, [facility] [id number] [place] [id number] Jun, [facility] [address] [address] Mar, [facility] [address] [address] Dec, [facility] [address] [address] Dec, [facility] [id number] [address] Nov, [facility] [id number] [address] Oct, [facility] [address] [address] Sep, IMMUNIZATIONS No Known Immunizations SOCIAL HISTORY Never Assessed REASON FOR VISIT c/o infection in mouth, lower back pain, with nausea, chills for 3 days Nirav WILLIAMSON PLAN OF CARE Activity Details Follow Up prn Reason:worsening no improvemenat VITAL SIGNS Height 66.0 in 2018-02-22 Weight 211.0 lbs 2018-02-22 Temperature 98.7 degrees Fahrenheit 2018-02-22 Heart Rate 106 bpm 2018-02-22 Respiratory Rate 18 2018-02-22 BMI 34.05 kg/m2 2018-02-22 Blood pressure systolic 122 mmHg 2018-02-22 Blood pressure diastolic 68 mmHg 2018-02-22 MEDICATIONS Medication Instructions Dosage Frequency Start Date End Date Duration Status Tramadol HCl 50 mg Orally 3 times a day 1 tablet as needed 8h Jan, Active Amoxicillin 500 MG Orally every 12 hrs 2 tablet 12h Jan, Mar, 10 days Active Omeprazole Magnesium 20.6 (20 Base) mg Orally twice a day 1 tablet 12h Jan, Active RESULTS Name Result Date Reference Range H PYLORI (IN HOUSE) 2018-02-22 H. PYLORI negative Control positive Lot # [id number] Exp date 01/30/19 UA LONG DIP (IN HOUSE) 2018-02-22 Lot # [id number] Exp date 09/29/18 Clarity clear Color yellow Odor no GLU neg RISHI 1+ KET neg SG 1.025 BLO neg pH 5.5 Protein trace URO 1.0 NIT neg BRENDA neg Lot # Exp date PROCEDURES Procedure Date Ordered Result Body Site URINALYSIS, AUTO, W/O SCOPE Feb 22, 2018 IMMUNOASSAY,INFECTIOUS AGENT Feb 22, 2018 INSTRUCTIONS MEDICATIONS ADMINISTERED No Known Medications MEDICAL (GENERAL) HISTORY Type Description Date Surgical History tonsillectomy 1998 Hospitalization History childbirth, surgery
--- OUTSIDE RECORDS SUMMARY | 2018-05-01 21:39 | XMS REPORT | Continuity of Care Document ---
Author Author [facility] Address Unknown Phone Unavailable Allergies Active Description Code Type Severity Reaction Onset Reported/Identified Relationship to Patient Clinical Status Yes NO KNOWN DRUG ALLERGIES UNKNOWN NO KNOWN DRUG ALLERG Yes No Known Drug Allergies [id number] Drug Allergy Unknown N/A 01/18/2011 Medications Medication Packaging Start Date Stop Date Route Dosage Sig CETACAINE 1 APPL LIQ 20 % (HURRICAINE) SPRAY 12/03/2016 12/03/2016 ONCE&1645 CETACAINE 1 APPL LIQ 20 % (HURRICAINE) SPRAY 12/03/2016 12/03/2016 ONCE&1700 Problems Date Dx Coded Attending Type Code [...] USE DISORDER COMP PREG/CHILDBIRT 01/22/2011 Ot V06.4 VAC-MEASLE- MUMPS-RUBELLA 01/22/2011 Ot V27.0 DELIVER- SINGLE LIVEBORN 02/04/2011 KAREN HARRIS DO 382.00 OTITIS [...] LAURIE AG DO Ot 786.50 11/08/2012 LAURIE GA DO Ot 789.09 03/13/2014 THOMAS REYNOSO, LUKE Whitney Ot 787.91 DIARRHEA 12/14/2014 PAM KIMBALL DO Ot 644.13 THREAT LABOR NEC-ANTEPAR 12/26/2014 PAM KIMBALL DO Ot 663.31 CORD ENTANGLE NEC-DELIV 12/26/2014 PAM KIMBALL DO Ot V06.1 [id number], COMBINED [ 12/26/2014 PAM KIMBALL DO Ot V27.0 DELIVER-SINGLE LIVEBORN 06/08/2015 AMELIA REYNOSO, MAYELA Arevalo Ot B17.9 ACUTE VIRAL HEPATITIS, UNSPECIFIED 06/08/2015 MAYELA CISNEROS MD Ot F17.210 NICOTINE DEPENDENCE, CIGARETTES, UNCOMPL 06/08/2015 MAYELA CISNEROS MD Ot N39.0 URINARY TRACT INFECTION, SITE NOT SPECIF 06/08/2015 MAYELA CISNEROS MD Ot R10.11 RIGHT UPPER QUADRANT PAIN 11/07/2015 EDNA CONKLIN MD Ot F17.210 NICOTINE DEPENDENCE, CIGARETTES, UNCOMPL 11/07/2015 EDNA CONKLIN MD Ot S63.8X1A SPRAIN OF OTHER PART OF RIGHT WRIST AND 11/07/2015 EDNA CONKLIN MD Ot X58.XXXA EXPOSURE TO OTHER SPECIFIED FACTORS, INI 11/07/2015 EDNA CONKLIN MD Ot Y99.8 OTHER EXTERNAL CAUSE STATUS 11/07/2015 EDNA CONKLIN MD Ot F17.210 NICOTINE DEPENDENCE, CIGARETTES, UNCOMPL 11/07/2015 EDNA CONKLIN MD Ot S63.8X1A SPRAIN OF OTHER PART OF RIGHT WRIST AND 11/07/2015 EDNA CONKLIN MD Ot X58.XXXA EXPOSURE TO OTHER SPECIFIED FACTORS, INI 11/07/2015 EDNA CONKLIN MD Ot Y99.8 OTHER EXTERNAL CAUSE STATUS 11/12/2015 EDNA CONKLIN MD Ot F17.210 NICOTINE DEPENDENCE, CIGARETTES, UNCOMPL 11/12/2015 EDNA CONKLIN MD, Ot S63.8X1A SPRAIN OF OTHER PART OF RIGHT WRIST AND 11/12/2015 EDNA CONKLIN MD Ot X58.XXXA EXPOSURE TO OTHER SPECIFIED FACTORS, INI 11/12/2015 EDNA CONKLIN MD Ot Y99.8 OTHER EXTERNAL CAUSE STATUS 12/23/2015 KIMBERLI LAURIE WISE Ot K52.9 NONINFECTIVE GASTROENTERITIS AND COLITIS 12/23/2015 KIMBERLI SHERRI WISEA K Ot O20.0 THREATENED 12/23/2015 LAURIE AG DO K Ot O99.611 DISEASES OF THE DGSTV SYS COMP 12/23/2015 KIMBERLISHERRI Rodriguez DOA K Ot Z3A.01 LESS THAN 8 WEEKS GESTATION OF 05/20/2016 JACOBY JOHN MD Ot O21.9 VOMITING OF , UNSPECIFIED 05/20/2016 JACOBY JOHN MD Ot Z3A.27 27 WEEKS GESTATION OF 05/24/2016 JACOBY JOHN MD Ot O21.9 VOMITING OF , UNSPECIFIED 05/24/2016 JACOBY JOHN MD Ot Z3A.27 27 WEEKS GESTATION OF 07/18/2016 JACOBY JOHN MD Ot O99.89 OTH DISEASES AND CONDITIONS COMPL PREG/C 07/18/2016 JACOBY JOHN MD Ot R10.9 UNSPECIFIED ABDOMINAL PAIN 07/19/2016 PAM KIMBALL DO Ot O36.8131 DECREASED MOVEMENTS, THIRD TRIMEST 07/19/2016 PAM KIMBALL DO Ot Z3A.35 35 WEEKS GESTATION OF 07/21/2016 JACOBY JOHN MD Ot O99.89 OTH DISEASES AND CONDITIONS COMPL PREG/C 07/21/2016 JACOBY JOHN MD Ot R10.9 UNSPECIFIED ABDOMINAL PAIN 08/04/2016 REHANA WISE PAM C Ot O36.8131 DECREASED MOVEMENTS, THIRD TRIMEST 08/04/2016 REHANA WISE PAM C Ot Z3A.35 35 WEEKS GESTATION OF 08/11/2016 JACOBY JOHN MD Ot O47.1 FALSE LABOR AT OR AFTER 37 COMPLETED WEE 08/11/2016 JACOBY JOHN MD Ot Z3A.39 39 WEEKS GESTATION OF 08/12/2016 REHANA WISE PAM C Ot O36.8131 DECREASED MOVEMENTS, THIRD TRIMEST 08/12/2016 REHANA WISE PAM C Ot Z3A.35 35 WEEKS GESTATION OF 08/12/2016 REHANA WISE PAM C Ot O36.8131 DECREASED MOVEMENTS, THIRD TRIMEST 08/12/2016 REHANA WISE PAM C Ot Z3A.35 35 WEEKS GESTATION OF 08/14/2016 REHANA WISE PAM C Ot O69.81X0 LABOR AND DEL COMP BY CORD AROUND NECK, 08/14/2016 REHANA WISE PAM C Ot O99.824 STREPTOCOCCUS B CARRIER STATE COMPLICATI 08/14/2016 REHANA WISE PAM C Ot Z23 ENCOUNTER FOR IMMUNIZATION 08/14/2016 REHANA WISE PAM C Ot Z37.0 SINGLE LIVE 08/14/2016 REHANA WISE PAM C Ot Z3A.39 39 WEEKS GESTATION OF 08/19/2016 JACOBY JOHN MD Ot O47.1 FALSE LABOR AT OR AFTER 37 COMPLETED WEE 08/19/2016 JACOBY JOHN MD Ot Z3A.39 39 WEEKS GESTATION OF 12/03/2016 Jam Rose 521.00 DENTAL CARIES, UNSPECIFIED 12/03/2016 Jam Rose K02.9 DENTAL CARIES, UNSPECIFIED Procedures Code Description Performed By Performed On 73.4 01/18/2011 73.59 01/20/2011 53898 TEST, URINE (IN- HOUSE) 04/20/2014 73.59 MANUAL ASSIST DELIV NEC 12/25/2014 [id number] DELIVERY OF PRODUCTS OF CONCEPTION, EXTE 08/12/2016 Results Test Result Range Complete blood count (CBC) with automated white blood cell (WBC) differential - 12/23/15 20:02 Blood leukocytes automated count (number/volume) 11.4 10*3/uL 4.3-11.0 Blood erythrocytes automated count (number/volume) 4.75 10*6/uL 4.35-5.85 Venous blood hemoglobin measurement (mass/volume) 14.8 [...] Automated blood platelet mean volume measurement 8.9 [foz_us] 7.4-10.4 Automated blood neutrophils/100 leukocytes 62 % [...] Serum or plasma sodium measurement (moles/volume) 135 mmol/L 135-145 Serum or plasma potassium measurement (moles/volume) 3.4 mmol/L 3.6-5.0 Serum or plasma chloride measurement (moles/volume) 107 mmol/L 98-107 Carbon dioxide 17 mmol/L 21-32 Serum or plasma anion gap determination (moles/volume) 11 mmol/L 5-14 Serum or plasma urea nitrogen measurement (mass/volume) 6 mg/dL 7-18 Serum or plasma creatinine measurement (mass/volume) 0.71 mg/dL 0.60-1.30 Serum or plasma urea nitrogen/creatinine mass [...] or plasma amylase measurement (enzymatic activity/volume) 49 U /L 25-125 Lipase - 12/23/15 20:02 Lipase 51 U/L 8-78 Serum or plasma choriogonadotropin measurement (units/volume) - 12/23/15 20:02 Serum or plasma choriogonadotropin measurement (units/volume) 20629 m[iU]/mL <5 Complete urinalysis with reflex to culture - 12/23/15 20:11 Urine color determination YELLOW NRG Urine clarity determination SLIGHTLY CLOUDY NRG Urine pH measurement by test strip 6 5-9 Specific gravity of urine by test strip 1.020 1.016- 1.022 Urine protein assay by test strip, semi-quantitative [...] Urine pH measurement by test strip 6.5 5-9 Specific gravity of urine by test strip 1.015 1.016- 1.022 Urine protein assay by test strip, semi-quantitative [...] 23:20 Blood leukocytes automated count (number/volume) 12.7 10*3/uL 4.3-11.0 Blood erythrocytes automated count (number/volume) 4.20 10*6/uL 4.35-5.85 Venous blood hemoglobin measurement (mass/volume) 13.4 [...] Automated blood platelet mean volume measurement 9.5 [foz_us] 7.4-10.4 Automated blood neutrophils/100 leukocytes 77 % [...] Serum or plasma sodium measurement (moles/volume) 137 mmol/L 135-145 Serum or plasma potassium measurement (moles/volume) 3.4 mmol/L 3.6-5.0 Serum or plasma chloride measurement (moles/volume) 107 mmol/L 98-107 Carbon dioxide 18 mmol/L 21-32 Serum or plasma anion gap determination (moles/volume) 12 mmol/L 5-14 Serum or plasma urea nitrogen measurement (mass/volume) 7 mg/dL 7-18 Serum or plasma creatinine measurement (mass/volume) 0.69 mg/dL 0.60-1.30 Serum or plasma urea nitrogen/creatinine mass [...] or plasma amylase measurement (enzymatic activity/volume) 65 U /L 25-125 Lipase - 05/19/16 23:20 Lipase 41 U/L 8-78 Complete urinalysis with reflex to culture - 07/18/16 19:40 Urine color determination YELLOW NRG Urine clarity determination CLEAR NRG Urine pH measurement by test strip 6.5 5-9 Specific gravity of urine by test strip 1.020 1.016- 1.022 Urine protein assay by test strip, semi-quantitative 1+ NEGATIVE Urine glucose detection by automated test [...] urine sediment by light microscopy NONE NRG Squamous epithelial cells detection in urine sediment by light microscopy 5-10 NRG Crystals detection in urine sediment by light microscopy PRESENT NRG Casts detection in urine sediment by light microscopy NONE NRG Mucus detection in urine sediment by light microscopy NEGATIVE NRG Complete urinalysis with reflex to culture NO NRG Amorphous sediment detection in urine sediment by light microscopy FEW SHAKIR URATES NRG Complete urinalysis with reflex to culture - 08/11/16 12:25 Urine color determination YELLOW NRG Urine clarity determination SLIGHTLY CLOUDY NRG Urine pH measurement by test strip 7 5-9 Specific gravity of urine by test strip 1.015 1.016- 1.022 Urine protein assay by test strip, semi-quantitative 1+ NEGATIVE Urine glucose detection by automated test [...] erythrocyte count by microscopy (number/high power field) RARE NRG Automated urine sediment leukocyte count by microscopy (number/high power field ) [HPF] NRG Bacteria detection in urine sediment by light microscopy NEGATIVE NRG Squamous epithelial cells detection in urine sediment by light microscopy 2-5 NRG Crystals detection in urine sediment by light microscopy PRESENT NRG Casts detection in urine sediment by light microscopy NONE NRG Mucus detection in urine sediment by light microscopy SMALL NRG Complete urinalysis with reflex to culture NO NRG Amorphous sediment detection in urine sediment by light microscopy FEW SHAKIR PHOSPHATE NRG Bacterial urine culture - 08/11/16 12:25 Bacterial urine culture [id number] NRG COLONY COUNT 10,000/ML - 100,000/ML NRG URINE CULTURE RESULTS <10,000/ML NRG Complete blood count (CBC) with automated white blood cell (WBC) differential - 08/12/16 11:28 Blood leukocytes automated count (number/volume) 10.2 10*3/uL 4.3-11.0 Blood erythrocytes automated count (number/volume) 4.57 10*6/uL 4.35-5.85 Venous blood hemoglobin measurement (mass/volume) 13.8 g/dL 11.5-16.0 Blood hematocrit (volume fraction) 40 % 35-52 Automated erythrocyte mean corpuscular volume 86 [foz_us] 80-99 Automated erythrocyte mean corpuscular hemoglobin (mass per erythrocyte) 30 pg 25-34 Automated erythrocyte mean corpuscular hemoglobin concentration measurement ( mass/volume) 35 g/dL 32-36 Automated erythrocyte distribution width ratio 13.5 % 10.0-14.5 Automated blood platelet count (count/volume) 249 10*3/uL 130-400 Automated blood platelet mean volume measurement 10.2 [foz_us] 7.4-10.4 Automated blood neutrophils/100 leukocytes 63 % 42-75 Automated blood lymphocytes/100 leukocytes 25 % 12-44 Blood monocytes/100 leukocytes 11 % 0-12 Automated blood eosinophils/100 leukocytes 1 % 0-10 Automated blood basophils/100 leukocytes 0 % 0-10 Blood neutrophils automated count (number/volume) 6.5 10*3 1.8-7.8 Blood lymphocytes automated count (number/volume) 2.5 10*3 1.0-4.0 Blood monocytes automated count (number/volume) 1.1 10*3 0.0-1.0 Automated eosinophil count 0.1 10*3/uL 0.0-0.3 Automated blood basophil count (count/volume) 0.0 10*3/uL 0.0-0.1 Blood type T Indirect antibody screen panel - 08/12/16 11:28 ABO+Rh group BP NRG Transfusion band number [id number] NRG Blood group antibody screen NEGATIVE NRG Complete blood count (CBC) with automated white blood cell (WBC) differential - 08/13/16 06:00 Blood leukocytes automated count (number/volume) 12.0 10*3/uL 4.3-11.0 Blood erythrocytes automated count (number/volume) 4.25 10*6/uL 4.35-5.85 Venous blood hemoglobin measurement (mass/volume) 12.8 g/dL 11.5-16.0 Blood hematocrit (volume fraction) 38 % 35-52 Automated erythrocyte mean corpuscular volume 88 [foz_us] 80-99 Automated erythrocyte mean corpuscular hemoglobin (mass per erythrocyte) 30 pg 25-34 Automated erythrocyte mean corpuscular hemoglobin concentration measurement ( mass/volume) 34 g/dL 32-36 Automated erythrocyte distribution width ratio 13.5 % 10.0-14.5 Automated blood platelet count (count/volume) 194 10*3/uL 130-400 Automated blood platelet mean volume measurement 10.7 [foz_us] 7.4-10.4 Automated blood neutrophils/100 leukocytes 63 % 42-75 Automated blood lymphocytes/100 leukocytes 28 % 12-44 Blood monocytes/100 leukocytes 8 % 0-12 Automated blood eosinophils/100 leukocytes 1 % 0-10 Automated blood basophils/100 leukocytes 0 % 0-10 Blood neutrophils automated count (number/volume) 7.6 10*3 1.8-7.8 Blood lymphocytes automated count (number/volume) 3.4 10*3 1.0-4.0 Blood monocytes automated count (number/volume) 0.9 10*3 0.0-1.0 Automated eosinophil count 0.1 10*3/uL 0.0-0.3 Automated blood basophil count (count/volume) 0.0 10*3/uL 0.0-0.1 Encounters ACCT No. Visit Date/Time Discharge Status Pt. Type Provider Facility Loc./Unit Complaint [id number] 04/20/2014 11:13:00 04/20/2014 23:59:59 CLS Outpatient KAREN HARRIS DO [id number] 08/12/2016 10:56:00 08/14/2016 14:40:00 DIS Inpatient PAM KIMBALL DO [facility] LDRP LABOR [id number] 08/11/2016 12:03:00 08/11/2016 14:20:00 DIS Outpatient JACOBY JOHN MD [facility] WSo BACK PAIN/ABD CRAMPING 39 WKS PREG [id number] 07/18/2016 19:35:00 07/18/2016 21:00:00 DIS Outpatient JACOBY JOHN [facility] BACK/ABD PAIN 36 WKS PREG [id number] 07/16/2016 14:35:00 07/16/2016 23:59:59 CLS Outpatient PAM KIMBALL DO [facility] RAD DECREASED MOVEMENTS [id number] 05/19/2016 22:22:00 05/20/2016 00:57:00 DIS Outpatient JACOBY JOHN MD [facility] UNABLE TO KEEP FOOD DOWN [id number] 12/23/2015 19:30:00 12/23/2015 21:08:00 DIS Emergency LAURIE AG DO Shalini [facility] ER 7 WKS PREG/CRAMPING [id number] 11/06/2015 23:20:00 11/07/2015 00:30:00 DIS Emergency EDNA CONKLIN MD [facility] ER RT HAND SWELLING-NO KNOWN INJURY [id number] 06/08/2015 01:06:00 06/08/2015 06:06:00 DIS Emergency MAYELA CISNEROS MD [facility] ER UPPER ABD PAIN [id number] 12/25/2014 11:40:00 12/26/2014 18:00:00 DIS Inpatient PAM KIMBALL DO [facility] LDRP LABOR [id number] 12/14/2014 00:05:00 12/14/2014 01:30:00 DIS Outpatient KIMBALLPAM Holloway DO [facility] WSo PRESSURE,FLUID LEAKAGE [id number] 05/25/2014 09:58:00 05/25/2014 09:58:00 CAN Preadmit AMELIA REYNOSO, MAYELA Arevalo [facility] ER COUGHING UP BLOOD;13 WEEKS [id number] 03/13/2014 18:09:00 03/13/2014 19:38:00 DIS Emergency LUKE GUZMAN MD [facility] ER N/D [id number] 11/07/2012 21:16:00 11/08/2012 00:26:00 DIS Emergency LAURIE AG DO [facility] ER [id number] 05/08/2012 17:41:00 Document Registration [id number] 04/13/2012 12:33:00 Document Registration [id number] 01/18/2011 18:14:00 Document Registration [id number] 07/13/2017 09:00:00 07/13/2017 23:59:59 CLS Outpatient REBECCA ZAVALA APRN [place] [id number] 12/03/2016 16:21:00 12/03/2016 17:10:00 DIS Outpatient Jam Rose [id number] 12/03/2016 18:27:19 Document Registration
[2018-05-01 21:58] LABS: BASOPHILS # (AUTO) 0.1 10^3/uL (0.0-0.1); BASOPHILS % (AUTO) 0 % (0-10); EOSINOPHILS # (AUTO) 0.3 10^3/uL (0.0-0.3); EOSINOPHILS % (AUTO) 2 % (0-10); HEMATOCRIT 45 % (35-52); HEMOGLOBIN 16.1 G/DL (11.5-16.0); LYMPHOCYTES # (AUTO) 1.8 X 10^3 (1.0-4.0); LYMPHOCYTES % (AUTO) 11 % (12-44); MEAN CORPUSCULAR HEMOGLOBIN 31 PG (25-34); MEAN CORPUSCULAR HGB CONC 36 G/DL (32-36); MEAN CORPUSCULAR VOLUME 85 FL (80-99); MONOCYTES # (AUTO) 1.2 X 10^3 (0.0-1.0); MONOCYTES % (AUTO) 7 % (0-12); NEUTROPHILS # (AUTO) 13.7 X 10^3 (1.8-7.8); NEUTROPHILS % (AUTO) 81 % (42-75); PLATELET COUNT 333 10^3/uL (130-400); RED BLOOD COUNT 5.27 10^6/uL (4.35-5.85); RED CELL DISTRIBUTION WIDTH 12.3 % (10.0-14.5); WHITE BLOOD COUNT 17.1 10^3/uL (4.3-11.0)
[2018-05-01 22:25] LABS: ALANINE AMINOTRANSFERASE 32 U/L (0-55); ALBUMIN 4.8 GM/DL (3.2-4.5); ALKALINE PHOSPHATASE 102 U/L (40-136); AMYLASE 63 U/L (25-125); BILIRUBIN,TOTAL 0.8 MG/DL (0.1-1.0); BUN/CREATININE RATIO 10; CALCIUM 9.8 MG/DL (8.5-10.1); CARBON DIOXIDE 19 MMOL/L (21-32); CHLORIDE 106 MMOL/L (98-107); CREATININE SERUM 1.17 MG/DL (0.60-1.30); GFR ESTIMATED 55; GLUCOSE 120 MG/DL (70-105); LIPASE 50 U/L (8-78); MAGNESIUM 1.8 MG/DL (1.8-2.4); POTASSIUM 4.3 MMOL/L (3.6-5.0); SODIUM 141 MMOL/L (135-145); TOTAL PROTEIN 7.8 GM/DL (6.4-8.2)
[2018-05-01 22:27] LABS: BAND NEUTROPHILS 3 %; BASOPHILS % (MANUAL) 0 %; EOSINOPHILS % (MANUAL) 4 %; LYMPHOCYTES % (MANUAL) 6 %; MONOCYTES % (MANUAL) 3 %; NEUTROPHILS % (MANUAL) 84 %; RBC MORPH NORMAL
[2018-05-01 22:44] LABS: CLARITY,URINE CLEAR; COLOR,URINE YELLOW; GLUCOSE, URINE (UA) NEGATIVE (NEGATIVE); KETONES,URINE 1+ (NEGATIVE); LEUKOCYTE ESTERASE ,URINE 1+ (NEGATIVE); NITRITE,URINE NEGATIVE (NEGATIVE); PH,URINE 6 (5-9); PROTEIN,URINE 1+ (NEGATIVE); UROBILINOGEN,URINE NORMAL (NORMAL)
[2018-05-01 22:56] LABS: BACTERIA,URINE FEW /HPF; BILIRUBIN,URINE 1+ (NEGATIVE); WBC,URINE 0-2 /HPF
--- NOTE | 2018-05-01 23:56 | ED GI ---
General Chief Complaint: Abdominal/GI Problems Stated Complaint: VOMITING Nursing Triage Note: Patient advises she began vomiting at approximately 1600 today. She states the vomiting has become progressively worse and she has been unable to keep anything down. She advised last intake was pizza at approximately 1430. Sepsis Screen: No Definite Risk Allergies and Home Medications Allergies Coded Allergies: No Known Drug Allergies (Unverified , 01/18/11) Home Medications Ibuprofen 600 Mg Tablet, 600 MG PO Q6H Prescribed by: PAM KIMBALL on 08/14/16 0959 Vit/Iron Fumarate/FA 1 Each Tablet, 1 EACH PO DAILY, (Reported) Past Mfvsrsb-Kodinu-Ewbwmj Hx Patient Social History Type Used: Cigarettes Recent Foreign Travel: No Contact w/Someone Who Travel: No Recent Infectious Disease Expo: No Recent Hopitalizations: No Immunizations Up To Date Tetanus Booster (TDap): Unknown PED Vaccines UTD: No Seasonal Allergies Seasonal Allergies: No Past Medical History Surgeries: Yes (KNEE, ) Adenoidectomy, Orthopedic, Tonsillectomy Respiratory: No Cardiac: No Neurological: No Reproductive Disorders: No Genitourinary: No Gastrointestinal: No Musculoskeletal: No Endocrine: No Cancer: No Psychosocial: No Integumentary: No Blood Disorders: No Adverse Reaction/Blood Tranf: No Family Medical History Blood clots FH: depression 19 MOTHER G8 SISTER FH: osteoporosis 19 MOTHER FHx: hyperlipidemia 19 MOTHER Physical Exam Vital Signs Vital Signs - First Documented 05/01/18 22:06 Pulse 94 Resp 14 B/P (MAP) 132/91 (105) Pulse Ox 98 O2 Delivery Room Air Capillary Refill : Less Than 3 Seconds Height/Weight/BMI Height: 5'6.00" Weight: 180lbs. 6.0oz. 81.711365vn; 33.5 BMI Method:Estimated Progress/Results/Core Measures Results/Orders Lab Results Laboratory Tests Test 05/01/18 21:51 05/01/18 22:35 Range/Units White Blood Count 17.1 H 4.3-11.0 10^3/uL Red Blood Count 5.27 4.35-5.85 10^6/uL Hemoglobin 16.1 H 11.5-16.0 G/DL Hematocrit 45 35-52 % Mean Corpuscular Volume 85 80-99 FL Mean Corpuscular Hemoglobin 31 25-34 PG Mean Corpuscular Hemoglobin Concent 36 32-36 G/DL Red Cell Distribution Width 12.3 10.0-14.5 % Platelet Count 333 130-400 10^3/uL Mean Platelet Volume 9.0 7.4-10.4 FL Neutrophils (%) (Auto) 81 H 42-75 % Lymphocytes (%) (Auto) 11 L 12-44 % Monocytes (%) (Auto) 7 0-12 % Eosinophils (%) (Auto) 2 0-10 % Basophils (%) (Auto) 0 0-10 % Neutrophils # (Auto) 13.7 H 1.8-7.8 X 10^3 Lymphocytes # (Auto) 1.8 1.0-4.0 X 10^3 Monocytes # (Auto) 1.2 H 0.0-1.0 X 10^3 Eosinophils # (Auto) 0.3 0.0-0.3 10^3/uL Basophils # (Auto) 0.1 0.0-0.1 10^3/uL Neutrophils % (Manual) 84 % Lymphocytes % (Manual) 6 % Monocytes % (Manual) 3 % Eosinophils % (Manual) 4 % Basophils % (Manual) 0 % Band Neutrophils 3 % Blood Morphology Comment NORMAL Sodium Level 141 135-145 MMOL/L Potassium Level 4.3 3.6-5.0 MMOL/L Chloride Level 106 98-107 MMOL/L Carbon Dioxide Level 19 L 21-32 MMOL/L Anion Gap 16 H 5-14 MMOL/L Blood Urea Nitrogen 12 7-18 MG/DL Creatinine 1.17 0.60-1.30 MG/DL Estimat Glomerular Filtration Rate 55 BUN/Creatinine Ratio 10 Glucose Level 120 H 70-105 MG/DL Calcium Level 9.8 8.5-10.1 MG/DL Corrected Calcium 8.5-10.1 MG/DL Magnesium Level 1.8 1.8-2.4 MG/DL Total Bilirubin 0.8 0.1-1.0 MG/DL Aspartate Amino Transf (AST/SGOT) 18 5-34 U/L Alanine Aminotransferase (ALT/SGPT) 32 0-55 U/L Alkaline Phosphatase 102 40-136 U/L Total Protein 7.8 6.4-8.2 GM/DL Albumin 4.8 H 3.2-4.5 GM/DL Amylase Level 63 25-125 U/L Lipase 50 8-78 U/L Serum Test, Qualitative NEGATIVE NEGATIVE Urine Color YELLOW Urine Clarity CLEAR Urine pH 6 5-9 Urine Specific [place] 1.015 L 1.016-1.022 Urine Protein 1+ H NEGATIVE Urine Glucose (UA) NEGATIVE NEGATIVE Urine Ketones 1+ H NEGATIVE Urine Nitrite NEGATIVE NEGATIVE Urine Bilirubin 1+ H NEGATIVE Urine Urobilinogen NORMAL NORMAL MG/DL Urine Leukocyte Esterase 1+ H NEGATIVE Urine RBC (Auto) NEGATIVE NEGATIVE Urine RBC NONE /HPF Urine WBC 0-2 /HPF Urine Squamous Epithelial Cells 5-10 /HPF Urine Crystals NONE /LPF Urine Bacteria FEW H /HPF Urine Casts NONE /LPF Urine Mucus SMALL H /LPF Urine Culture Indicated NO My Orders Orders - LAURIE AG DO Saline Lock/Iv-Start (05/01/18 21:47) Amylase (05/01/18 21:47) Cbc With Automated Diff (05/01/18 21:47) Comprehensive Metabolic Panel (05/01/18 21:47) Hcg,Qualitative Serum (05/01/18 21:47) Lipase (05/01/18 21:47) Magnesium (05/01/18 21:47) Ua Culture If Indicated (05/01/18 21:47) Ondansetron Injection (Zofran Injectio (05/01/18 22:00) Saline Lock/Iv-Start (05/01/18 21:47) Lactated Ringers (Lr 1000 Ml Iv Solution (05/01/18 21:47) Manual Differential (05/01/18 21:51) Ct Abdomen/Pelvis W (05/01/18 22:30) Acute Abd Series (05/01/18 22:30) Saline Lock/Iv-Start (05/01/18 22:37) Lactated Ringers (Lr 1000 Ml Iv Solution (05/01/18 22:37) Iohexol Injection (Omnipaque 350 Mg/Ml 1 (05/01/18 23:00) Ns (Ivpb) (Sodium Chloride 0.9% Ivpb Bag (05/01/18 23:00) Medications Given in ED Current Medications Medications Dose Ordered Sig/Abena Route Start Time Stop Time Status Last Admin Dose Admin Iohexol 100 ml ONCE ONCE IV 05/01/18 23:00 05/01/18 23:12 DC 05/01/18 23:02 100 ML Lactated Ringer's 1,000 ml @ 0 mls/hr Q0M ONCE IV 05/01/18 21:47 05/01/18 21:49 DC 05/01/18 21:55 0 MLS/HR Lactated Ringer's 1,000 ml @ 0 mls/hr Q0M ONCE IV 05/01/18 22:37 05/01/18 22:39 DC 05/01/18 23:14 0 MLS/HR Ondansetron HCl 8 mg ONCE ONCE IVP 05/01/18 22:00 05/01/18 22:01 DC 05/01/18 21:55 8 MG Sodium Chloride 80 ml ONCE ONCE IV 05/01/18 23:00 05/01/18 23:12 DC 05/01/18 23:02 80 ML Vital Signs/I&O 05/01/18 22:06 Pulse 94 Resp 14 B/P (MAP) 132/91 (105) Pulse Ox 98 O2 Delivery Room Air Blood Pressure Mean: 105 Departure Impression Primary Impression: Gastroenteritis Additional Impression: IUD migration Disposition: HOME, SELF-CARE Condition: Improved Departure-Patient Inst. Referrals: [facility] (PCP/Family) Primary Care Physician Patient Instructions: Intrauterine Devices (IUD), Viral Gastroenteritis, Adult (DC) Add. Discharge Instructions: CLEAR LIQUIDS--WATER, BROTH, JELLO, GATORADE TOMORROW IF YOU ARE BETTER, ADD BRATS DIET TO CLEAR LIQUIDS--BANANAS, RICE, APPLESAUCE, TOAST, SALTINES FOLLOW UP WITH DR. KIMBALL THIS WEEK REGARDING YOUR IUD FOLLOW UP WITH [facility] IN 2-3 DAYS IF NO BETTER, RETURN TO ER IF WORSE All discharge instructions reviewed with patient and/or family. Voiced understanding. Scripts Pantoprazole Sodium (Protonix) 40 Mg Tablet. 40 MG PO DAILY, #15 TAB Prov: LAURIE AG DO 05/01/18 Ondansetron (Ondansetron Odt) 8 Mg Tab.rapdis 8 MG PO Q6H for Nausea/Vomiting, #10 TAB Prov: LAURIE AG DO 05/01/18 LAURIE AG DO May 01, 2018 23:56
[2018-05-02 00:17] VITALS: BP 128/81
--- NOTE | 2018-05-02 06:52 | Diagnostic Imaging Report ---
PATIENT HISTORY: Vomiting. TECHNIQUE: Frontal view of the chest. Upright and supine frontal views of the abdomen COMPARISON: CT from the same day FINDINGS: The lung volumes are normal. No focal consolidation is seen. There is no pleural effusion or pneumothorax. The cardiomediastinal silhouette is normal in size and contour. No distended loops of bowel are seen to suggest obstruction. No large collection of free air seen. Intrauterine device is noted. IMPRESSION: 1. No bowel obstruction or large collection of free air. 2. No acute pulmonary abnormality seen. Dictated by: Dictated on workstation # [id number]
--- NOTE | 2018-05-02 06:56 | Diagnostic Imaging Report ---
PROCEDURE: CT abdomen and pelvis with contrast. TECHNIQUE: Multiple contiguous axial images were obtained through the abdomen and pelvis after administration of intravenous contrast. INDICATION: Vomiting COMPARISON: 06/08/2015 FINDINGS: The lung bases are clear. The heart is normal in size. There is no pericardial effusion. The liver demonstrates no focal lesions. The spleen is normal. The pancreas is normal. The adrenal glands are normal. The kidneys are unremarkable. There is no hydronephrosis. The bowel loops are nondistended without evidence of obstruction. No free fluid or free air seen. The intrauterine device does appear to extend through the anterior myometrium, with the tip at the serosal margin. IMPRESSION: 1. No bowel obstruction or acute abdominal abnormality seen. 2. The intrauterine device protrudes through the anterior myometrium, extending to the serosal margin. Dictated by: Dictated on workstation # [id number]
== END | disposition home or self-care (01) ==
LOC: EDUNIT# 21:31 → ER 21:32
DX: K52.9 Noninfective gastroenteritis and colitis, unspecified (principal); T83.32XA Displacement of intrauterine contraceptive device, initial encounter; Z90.89 Acquired absence of other organs; Z82.49 Family history of ischemic heart disease and other diseases of the circulatory system
CPT/HCPCS: 36415; 74022; 74177; 80053; 81000; 82150; 83690; 83735; 84703; 85007; 85027

== ENCOUNTER → 2018-10-16 | Outpatient (CLI) | payer SELFPAY ==
[~2018-10-16] MED LIST changes: -IOHEXOL 350 MG/ML 100 ML (OMNIPAQUE 350) VIAL IV ONE; -LACTATED RINGERS 1,000 ML IV ONE; -NS 100 ML (IVPB) BAG IV ONE; -ONDANSETRON 4 MG/2 ML (SDV) Z0FRAN IVP ONE; -PANTOPRAZOLE 40 MG (PROTONIX) VIAL IV ONE; -RX-ONDANSETRON 4 MG ODT (ZOFRAN) PPK #4 PO STA
--- NOTE | 2018-10-16 13:41 | Diagnostic Imaging Report ---
PROCEDURE: US OB SINGLE FETUS <14 WKS. TECHNIQUE: Multiple real-time grayscale images were obtained over the gravid uterus in various projections. INDICATION: dating. FINDINGS: There is an intrauterine gestational sac containing a pole. [place]-rump length measurement is approximately 4.0 cm, consistent with 11 weeks 0 day gestation. heart rate was recorded at 170 beats per minute. There may be a very small subchorionic hemorrhage present to the left of the sac. Gestational sac shape is within normal limits. Adnexal evaluation demonstrates the right ovary to be unremarkable. The left ovary is not visualized. IMPRESSION: Single live IUP of 11 weeks 0 day gestational age. Estimated date of confinement sonographically is 05/07/2019. There is a very small subchorionic bleed. Dictated by: Dictated on workstation # [id number]
== END ==
LOC: RAD 11:05
PROVIDERS: ATTEND Family Medicine
DX: Z34.91 Encounter for supervision of normal pregnancy, unspecified, first trimester (principal); Z3A.11 11 weeks gestation of pregnancy
CPT/HCPCS: 76801

== ENCOUNTER 2019-03-08 17:58 | Emergency (ER) | payer SELFPAY ==
[~2019-03-08] VITALS: Ht 160 cm; Wt 91.6 kg
[2019-03-08 18:25] VITALS: BP 123/84
== END 2019-03-08 18:50 | disposition left against medical advice (07) ==
LOC: EDUNIT# 17:58 → ER 18:00
DX: R03.0 Elevated blood-pressure reading, without diagnosis of hypertension (principal); R51 Headache; R11.10 Vomiting, unspecified; F17.210 Nicotine dependence, cigarettes, uncomplicated
CPT/HCPCS: 99281

== ENCOUNTER 2019-05-03 06:00 | Inpatient (IN) | payer OTHER ==
[2019-05-03] VITALS (43 sets, daily range): BP systolic 124–179; BP diastolic 63–110
[~2019-05-03] VITALS: Ht 170 cm; Wt 92.5 kg
--- NOTE | 2019-05-03 05:58 | NUR ---
SARA MILAN presented to unit via ambulatory from ED, accompanied by s,o, with c/o INDUCTION 40 0. SARA MILAN weighed, gowned, voided, and to bed. EFHM and TOCO applied, VS taken. SARA MILAN oriented to bed controls, call light, TV, heat, and A/C controls.
[2019-05-03] MEDS ORDERED: AMPICILLIN FOR IV USE 2,000 MG in WATER (STERILE) FOR INJECTION 14.8 ML IV SCH (06:15)
[2019-05-03] MEDS ORDERED: MINERAL OIL CONCENTRATE 99.9% 15 ML UDC TOP PRN (06:15)
[2019-05-03] MEDS ORDERED: D5 LR IV SOLUTION 1,000 ML IV SCH (06:15)
[2019-05-03] MEDS ORDERED: D5 LR IV SOLUTION 1,000 ML IV ONE (06:22)
[2019-05-03 06:42] LABS: BASOPHILS % (AUTO) 0 % (0-10); EOSINOPHILS # (AUTO) 0.3 10^3/uL (0.0-0.3); EOSINOPHILS % (AUTO) 3 % (0-10); HEMATOCRIT 38 % (35-52); HEMOGLOBIN 13.4 G/DL (11.5-16.0); LYMPHOCYTES # (AUTO) 2.5 X 10^3 (1.0-4.0); LYMPHOCYTES % (AUTO) 28 % (12-44); MEAN CORPUSCULAR HEMOGLOBIN 32 PG (25-34); MEAN CORPUSCULAR HGB CONC 36 G/DL (32-36); MEAN CORPUSCULAR VOLUME 90 FL (80-99); MEAN PLATELET VOLUME 9.6 FL (7.4-10.4); MONOCYTES # (AUTO) 0.8 X 10^3 (0.0-1.0); MONOCYTES % (AUTO) 9 % (0-12); NEUTROPHILS # (AUTO) 5.4 X 10^3 (1.8-7.8); NEUTROPHILS % (AUTO) 60 % (42-75); PLATELET COUNT 274 10^3/uL (130-400); RED CELL DISTRIBUTION WIDTH 12.7 % (10.0-14.5); WHITE BLOOD COUNT 8.9 10^3/uL (4.3-11.0)
[2019-05-03] MEDS ORDERED: ACET-93 PO (06:58)
--- NOTE | 2019-05-03 08:02 | History & Physical-OB ---
OB - Chief Complaint & HPI Date/Time Date of Admission: Date of Admission: May 03, 2019 at 06:00 Date seen by a Provider: May 03, 2019 Time Seen by a Provider: 08:01 Chief Complaint/History OB-Reason for Admission/Chief: Induction of Labor Hx : 4 Hx Para: 3 Expected Date of Delivery: May 07, 2019 Gestational Age in Weeks: 39 Gestational Age in Days: 3 Indication for induction: maternal discomfort History of Labs B+, antibody neg, RI. GC/chlamydia neg. HIV/RPR/HepB neg. Glucola normal. GBS positive. Allergies and Home Medications Allergies Coded Allergies: No Known Drug Allergies (Unverified , 01/18/11) Home Medications Vit/Iron Fumarate/FA 1 Each Tablet, 1 EACH PO DAILY, (Reported) Patient Home Medication List Home Medication List Reviewed: Yes OB - History Hx of Present Care: Yes Ultrasounds: Normal mid trimester US Obstetrical Complications: None Obstetrical History Hx : 4 Hx Para: 3 Hx # Term Pregnancies: 3 Hx # Pregnancies: 0 Number of Living Children: 3 Hx Termination: No Hx Multiple Gestation: No Hx Ectopic : No Hx Stillbirth: No Hx Complication: No Hx Induced Hypertens: No Hx Maternal Gestational Diabet: No Hx Hemorrhage: No Delivery History Hx Dystocia: No Hx Forceps Assisted Delivery: No Hx Vacuum Extraction Assisted: No Hx Placenta Abnormality: No Hx Distress: No Hx Large For Gestational Age I: No Hx Small for Gestational Age I: No Hx Section: No Hx Vaginal Delivery Post C-Sec: No Hx Blood Disorders: No Adverse Rxn to Tranfusion: No Patient Past Medical History PMHx: Denies PSurgHx: tonsillectomy Social History/Family History HIV/AIDS: No Recent Infectious Disease Expo: No Sexually Transmitted Disease: No Alcohol Use: Denies Use Recreational Drug Use: No Smoking Cessation: Current every day smoker Immunizations Hepatitis A: Yes Hepatitis B: Yes Tetanus Booster (TDap): Less than 5yrs (02/20/2019) Date of Influenza Vaccine: Dec 31, 2018 Rubella: immune RPR/VDRL: Negative GBS Status: Positive HBsAG: Negative OB - Admission Exam Physical Exam Vitals: Vital Signs 05/03/19 05/03/19 06:54 07:10 Temp 36.7 Pulse 90 Resp 18 B/P (MAP) 130/84 (99) Pulse Ox 99 O2 Delivery Room Air HEENT: NCAT Abdomen: Non tender Extremities: Normal Cervical Dilatation: 2cm Effacement: 0% Station: Ballotable Membranes: Intact Heart Rate: 140's Decelerations: No Decelerations Short Term Variability: Present Snf Variability: Average (6-25) Contractions on Admission: >10 Minutes Apart Velasquez Scoring Tool (Modified) Dilation (cm): 1-2cm (1) Effacement (%): 0-30% (0) Descent/Station: -3 (0) Cervix Consistency: Soft (2) Cervix Position: Middle/Mid-Position (1) Add 1 point for: Each previous vaginal delivery (1) (3) Velasquez Score: 7 Labs Laboratory Tests Test 05/03/19 06:25 Range/Units White Blood Count 8.9 4.3-11.0 10^3/uL Red Blood Count 4.21 L 4.35-5.85 10^6/uL Hemoglobin 13.4 11.5-16.0 G/DL Hematocrit 38 35-52 % Mean Corpuscular Volume 90 80-99 FL Mean Corpuscular Hemoglobin 32 25-34 PG Mean Corpuscular Hemoglobin Concent 36 32-36 G/DL Red Cell Distribution Width 12.7 10.0-14.5 % Platelet Count 274 130-400 10^3/uL Mean Platelet Volume 9.6 7.4-10.4 FL Neutrophils (%) (Auto) 60 42-75 % Lymphocytes (%) (Auto) 28 12-44 % Monocytes (%) (Auto) 9 0-12 % Eosinophils (%) (Auto) 3 0-10 % Basophils (%) (Auto) 0 0-10 % Neutrophils # (Auto) 5.4 1.8-7.8 X 10^3 Lymphocytes # (Auto) 2.5 1.0-4.0 X 10^3 Monocytes # (Auto) 0.8 0.0-1.0 X 10^3 Eosinophils # (Auto) 0.3 0.0-0.3 10^3/uL Basophils # (Auto) 0.0 0.0-0.1 10^3/uL OB - Assessment/Plan/Diagnosis Assessment Assessment: induction of labor Admission Dx at 39 weeks gestation Elective induction of labor Blood type B+ rubella immune GBS positive Admission Status: Inpatient Order (span 2 midnights) Reason for Inpatient Admission: labor, delivery and course Plan Plan: Induction Induction Method: per Pitocin Protocol SON BUTLER MD May 03, 2019 08:02
[2019-05-03] MEDS ORDERED: OXYTOCIN/NORMAL SALINE 500 ML IV ONE (08:09)
[2019-05-03] MEDS ORDERED: OXYTOCIN/NORMAL SALINE 500 ML IV SCH ×2 (08:20→18:00)
[2019-05-03] MEDS ORDERED: fentaNYL INJECTION 100 MCG/2 ML AMP IVP PRN (08:30)
[2019-05-03] MEDS ORDERED: AMPICILLIN FOR IV USE 1,000 MG in WATER (STERILE) FOR INJECTION 7.4 ML IV SCH (10:15)
--- NOTE | 2019-05-03 12:39 | Labor Progress Note ---
Labor Progress Note Labor Progress Note Date Seen by Provider: May 03, 2019 Time Seen by Provider: 12:37 Subjective: Pt uncomfortable with contractions. Objective: Cervical exam: 5.5/30/-1 Consistency: Soft Position: Mid Presentation: Vertex heart tones: 150 beats per minute, moderate variability, no decels Tocometer: 3 ctx/10 minutes Assessment/Plan: Cris Oglesby is a 28 /Para 4 / 3,Gestational Age (wks)39 here for IOL. AROM done at this time with clear fluid and FSE placed. FSE placed/TOCO Continue pitocin Anesthesia: None Anticipate vaginal delivery. Vitals - Labs Vital Signs - I&O Vital Signs Date Time Temp Pulse Resp B/P (MAP) Pulse Ox O2 Delivery O2 Flow Rate FiO2 05/03/19 10:10 69 18 139/76 (97) 05/03/19 09:55 72 18 144/83 (103) 05/03/19 09:40 74 18 141/81 (101) 05/03/19 09:25 74 18 149/85 (106) 05/03/19 09:10 75 18 145/86 (105) 05/03/19 08:55 78 18 143/83 (103) 05/03/19 08:40 81 18 148/86 (106) 05/03/19 08:25 95 18 143/95 (111) 05/03/19 08:20 94 18 141/96 (111) 05/03/19 07:55 37.4 101 18 124/77 (93) 05/03/19 07:40 90 18 140/84 (102) 05/03/19 07:25 91 18 134/84 (101) 05/03/19 07:10 90 18 130/84 (99) 05/03/19 06:55 112 18 126/87 (100) 05/03/19 06:54 36.7 99 18 99 Room Air 05/03/19 06:40 114 18 134/92 (106) 05/03/19 06:25 110 18 133/87 (102) 05/03/19 06:05 36.7 99 18 142/96 (111) 99 Labs Laboratory Tests 05/03/19 06:25: White Blood Count 8.9, Red Blood Count 4.21L, Hemoglobin 13.4, Hematocrit 38, Mean Corpuscular Volume 90, Mean Corpuscular Hemoglobin 32, Mean Corpuscular Hemoglobin Concent 36, Red Cell Distribution Width 12.7, Platelet Count 274, Mean Platelet Volume 9.6, Neutrophils (%) (Auto) 60, Lymphocytes (%) (Auto) 28, Monocytes (%) (Auto) 9, Eosinophils (%) (Auto) 3, Basophils (%) (Auto) 0, Neutrophils # (Auto) 5.4, Lymphocytes # (Auto) 2.5, Monocytes # (Auto) 0.8, Eosinophils # (Auto) 0.3, Basophils # (Auto) 0.0 SON BUTLER MD May 03, 2019 12:39
[2019-05-03] MEDS ORDERED: LIDOCAINE/EPI 2% 1:200,00 (XYLOCAINE) 10 ML VIAL ONE (13:53)
[2019-05-03] MEDS ORDERED: ONDANSETRON 4 MG/2 ML (SDV) Z0FRAN ONE (13:55)
--- NOTE | 2019-05-03 14:45 | OB Labor & Delivery Record ---
Vag Delivery Note Vag Delivery Note Date of Delivery: 05/03/19 Preoperative Diagnosis: Cris Oglesby is a 28 /Para 4 / 3, Gestational Age (wks)39with 3 days Postoperative Diagnosis: Same Surgeon: SON BUTLER Molding Machine Operator: None Anesthesia: None Delivery Type: Findings: Viable female , apgars 9/9, weight 6#9 Lacerations: right periurethral abrasion Intact placenta with 3 vessel cord. Nuchal cord x 1 easily reduced, no body cord or shoulder dystocia. True knot in umbilical cord noted. Estimated Blood Loss: 200 ml Complications: None Condition: Stable Description of Procedure: The patient is a 28 year old female who presented for elective induction of labor. She was admitted and informed consent was obtained. Her labor course was remarkable for rapid active phase She progressed to complete dilatation and began to push. She was then set up for delivery. The infant's head was delivered atraumatically in the TERELL position. The shoulders and remainder of the infant's body were then delivered without difficulty. Upon delivery, the was vigorous and placed on maternal abdomen. After a delay, the cord was doubly clamped and cut and the was handed off to the pediatric staff. An intact placenta with 3-vessel cord delivered via Johan and there was found to be minimal bleeding.~ Vigorous fundal massage was performed and the fundus was found to be firm. IV oxytocin was given. Examination of the vagina and perineum revealed a right periurethral abrasion not requiring repair. Following the delivery, sponge, instrument and needle counts were correct. Mom and baby were both in stable condition in the labor suite. Vitals - Labs Vital Signs - I&O Vital Signs Date Time Temp Pulse Resp B/P (MAP) Pulse Ox O2 Delivery O2 Flow Rate FiO2 05/03/19 10:10 69 18 139/76 (97) 05/03/19 09:55 72 18 144/83 (103) 05/03/19 09:40 74 18 141/81 (101) 05/03/19 09:25 74 18 149/85 (106) 05/03/19 09:10 75 18 145/86 (105) 05/03/19 08:55 78 18 143/83 (103) 05/03/19 08:40 81 18 148/86 (106) 05/03/19 08:25 95 18 143/95 (111) 05/03/19 08:20 94 18 141/96 (111) 05/03/19 07:55 37.4 101 18 124/77 (93) 05/03/19 07:40 90 18 140/84 (102) 05/03/19 07:25 91 18 134/84 (101) 05/03/19 07:10 90 18 130/84 (99) 05/03/19 06:55 112 18 126/87 (100) 05/03/19 06:54 36.7 99 18 99 Room Air 05/03/19 06:40 114 18 134/92 (106) 05/03/19 06:25 110 18 133/87 (102) 05/03/19 06:05 36.7 99 18 142/96 (111) 99 Labs Laboratory Tests 05/03/19 06:25: White Blood Count 8.9, Red Blood Count 4.21L, Hemoglobin 13.4, Hematocrit 38, Mean Corpuscular Volume 90, Mean Corpuscular Hemoglobin 32, Mean Corpuscular Hemoglobin Concent 36, Red Cell Distribution Width 12.7, Platelet Count 274, Mean Platelet Volume 9.6, Neutrophils (%) (Auto) 60, Lymphocytes (%) (Auto) 28, Monocytes (%) (Auto) 9, Eosinophils (%) (Auto) 3, Basophils (%) (Auto) 0, Neutrophils # (Auto) 5.4, Lymphocytes # (Auto) 2.5, Monocytes # (Auto) 0.8, Eosinophils # (Auto) 0.3, Basophils # (Auto) 0.0 SON BUTLER MD May 03, 2019 14:45
[2019-05-03] MEDS ORDERED: BENZOCAINE/MENTHOL (DERMOPLAST) 56 ML CAN TP PRN (18:00)
[2019-05-03] MEDS ORDERED: WITCH HAZEL(TUCKS) 40 EA JAR TOP PRN (18:00)
[2019-05-03] MEDS ORDERED: BENZOCAINE/MENTHOL (DERMOPLAST) 56 ML CAN TP ONE (18:17)
[2019-05-03] MEDS ORDERED: WITCH HAZEL(TUCKS) 40 EA JAR ONE (18:17)
[2019-05-03] MEDS ORDERED: IBUPROFEN 600 MG (MOTRIN) TAB PO ONE (18:17)
[2019-05-03] MEDS: IBUPROFEN 600 MG (MOTRIN) TAB PO SCH (18:23)
--- NOTE | 2019-05-03 20:20 | NUR ---
Rn to room, pt up to shower at this time, will return.
[2019-05-03] MEDS: DOCUSATE SODIUM 100 MG (COLACE) CAP PO SCH (21:01)
[2019-05-03] MEDS ORDERED: CATHETER FLUSH 10 ML SYR IV SCH (22:00)
[2019-05-04 00:15] VITALS: BP 147/78
[2019-05-04] MEDS: IBUPROFEN 600 MG (MOTRIN) TAB PO SCH ×3 (00:18→12:04)
[2019-05-04 05:16] VITALS: BP 138/87
[2019-05-04 05:33] LABS: BASOPHILS % (AUTO) 0 % (0-10); EOSINOPHILS # (AUTO) 0.4 10^3/uL (0.0-0.3); EOSINOPHILS % (AUTO) 3 % (0-10); HEMATOCRIT 38 % (35-52); HEMOGLOBIN 13.3 G/DL (11.5-16.0); LYMPHOCYTES # (AUTO) 3.4 X 10^3 (1.0-4.0); LYMPHOCYTES % (AUTO) 28 % (12-44); MEAN CORPUSCULAR HEMOGLOBIN 32 PG (25-34); MEAN CORPUSCULAR HGB CONC 35 G/DL (32-36); MEAN CORPUSCULAR VOLUME 90 FL (80-99); MEAN PLATELET VOLUME 9.7 FL (7.4-10.4); MONOCYTES % (AUTO) 8 % (0-12); NEUTROPHILS # (AUTO) 7.4 X 10^3 (1.8-7.8); NEUTROPHILS % (AUTO) 61 % (42-75); PLATELET COUNT 254 10^3/uL (130-400); RED CELL DISTRIBUTION WIDTH 12.6 % (10.0-14.5); WHITE BLOOD COUNT 12.2 10^3/uL (4.3-11.0)
[2019-05-04] MEDS: DOCUSATE SODIUM 100 MG (COLACE) CAP PO SCH (08:57)
[2019-05-04 09:00] VITALS: BP 136/75
--- NOTE | 2019-05-04 09:26 | Short Stay Summary ---
Discharge Summary Hospital Course Final Diagnosis: see Hospital Course Hospital Course Date of Admission: May 03, 2019 at 06:00 Final Diagnosis: see Hospital Course Hospital Course Date of Admission: May 03, 2019 at 14:13 Admission Diagnosis : 1. at 39w3d, elective IOL 2. GBS+ Family Physician/Provider: Glenn Date of Discharge: 05/04/19 Discharge Diagnosis: 1. G4 s/p SVE at 39w3d 2. GBS+, adequate antibiotic prophylaxis Hospital Course: Routine course. Labs and Pending Lab Test: Laboratory Tests 05/04/19 05:13: White Blood Count 12.2H, Red Blood Count 4.16L, Hemoglobin 13.3, Hematocrit 38, Mean Corpuscular Volume 90, Mean Corpuscular Hemoglobin 32, Mean Corpuscular Hemoglobin Concent 35, Red Cell Distribution Width 12.6, Platelet Count 254, Mean Platelet Volume 9.7, Neutrophils (%) (Auto) 61, Lymphocytes (%) (Auto) 28, Monocytes (%) (Auto) 8, Eosinophils (%) (Auto) 3, Basophils (%) (Auto) 0, Neutrophils # (Auto) 7.4, Lymphocytes # (Auto) 3.4, Monocytes # (Auto) 1.0, Eos inophils # (Auto) 0.4H, Basophils # (Auto) 0.0 Home Meds Active Reported Acetaminophen 500 Mg Tablet 1,000 Mg PO Tablet ( Vit/Iron Fumarate/FA) 1 Each Tablet 1 Each PO DAILY Assessment/Pt Instructions Follow-up with Dr. Elizabeth in 6wk Discharge Instructions Discharge Diet: No Restrictions Discharge Physical Examination General Appearance: Alert, Oriented X3, Cooperative Psych/Mental Status: Mood NL Allergies: Coded Allergies: No Known Drug Allergies (Unverified , 01/18/11) Discharge Summary Date of Admission May 03, 2019 at 06:00 Date of Discharge Clinical Quality Measures DVT/VTE Risk/Contraindication: Risk Factor Score Per Nursin RFS Level Per Nursing on Admit: 2=Moderate KAREN HARRIS DO May 04, 2019 09:26
[2019-05-04] MEDS ORDERED: IBUP-844 PO (09:28)
[2019-05-04 12:05] VITALS: BP 136/85
== END 2019-05-04 15:20 | disposition home or self-care (01) | DRG 807 ==
LOC: LDRP 06:00
PROVIDERS: ADMIT Family Medicine; ATTEND Family Medicine
PROC: 10E0XZZ Delivery of Products of Conception, External Approach (ICD-10-PCS; principal; 2019-05-03)
PROC: 10907ZC Drainage of Amniotic Fluid, Therapeutic from Products of Conception, Via Natural or Artificial Opening (ICD-10-PCS; 2019-05-03)
PROC: 3E033VJ Introduction of Other Hormone into Peripheral Vein, Percutaneous Approach (ICD-10-PCS; 2019-05-03)
DX: O99.334 Smoking (tobacco) complicating childbirth (principal); Z37.0 Single live birth; F17.200 Nicotine dependence, unspecified, uncomplicated; O99.824 Streptococcus B carrier state complicating childbirth; O69.81X0 Labor and delivery complicated by cord around neck, without compression, not applicable or unspecified; O71.82 Other specified trauma to perineum and vulva; Z3A.39 39 weeks gestation of pregnancy
CPT/HCPCS: 36415; 85025; 86850; 86900; 86901

== ENCOUNTER 2022-12-07 19:46 | Outpatient (CLI) | payer OTHER ==
[~2022-12-07] VITALS: Ht 167.7 cm; Wt 98.2 kg
[~2022-12-07 19:46] MED LIST changes: +ACET-11 PO; +ACET-93 PO; -ACET1TAB43 PO; +IBUP-844 PO; +OMEP20TA56 PO; -OMEP20TA7 PO
[2022-12-07 19:47] VITALS: BP 139/83
[2022-12-07 19:58] VITALS: BP 139/83
[2022-12-07 20:16] LABS: BILIRUBIN,URINE NEGATIVE (NEGATIVE); CLARITY,URINE CLEAR; COLOR,URINE YELLOW; GLUCOSE, URINE (UA) NEGATIVE (NEGATIVE); KETONES,URINE NEGATIVE (NEGATIVE); LEUKOCYTE ESTERASE ,URINE NEGATIVE (NEGATIVE); NITRITE,URINE NEGATIVE (NEGATIVE); PROTEIN,URINE 1+ (NEGATIVE)
[2022-12-07 20:20] LABS: BACTERIA,URINE FEW /HPF; RBC,URINE 0-2 /HPF; SQUAMOUS EPITHELIAL CELL,UR >50 /HPF; WBC,URINE 0-2 /HPF
[2022-12-07] MEDS ORDERED: ACETAMINOPHEN 500 MG TABLET PO ONE (20:45)
[2022-12-07] MEDS ORDERED: ACETAMINOPHEN 500 MG TABLET ONE (20:55)
[2022-12-07 20:57] VITALS: BP 131/77
[2022-12-07 21:03] VITALS: BP 131/77
--- NOTE | 2022-12-08 08:48 | Physician Query-Final Dx ---
Clinic Account Progress/Dx Physician Query: Please give diagnosis Please include # weeks gestation Date of Service Dec 07, 2022 at 19:46 ENRRIQUE,MayDec 08, 2022 08:48
== END 2022-12-07 21:04 ==
LOC: LDRP 19:46 → WSo 19:46
PROVIDERS: ATTEND Family Medicine
DX: O99.891 Other specified diseases and conditions complicating pregnancy (principal); N94.89 Other specified conditions associated with female genital organs and menstrual cycle; Z3A.27 27 weeks gestation of pregnancy
CPT/HCPCS: 81000; G0463; 99213

== ENCOUNTER 2023-02-09 14:40 | Observation (INO) | payer OTHER ==
[~2023-02-09] VITALS: Ht 165 cm; Wt 101.4 kg
[2023-02-09] VITALS (7 sets, daily range): BP systolic 138–146; BP diastolic 79–87
[2023-02-09 15:19] LABS: AMORPHOUS SEDIMENT,UR RARE AMOR URATES /LPF; BACTERIA,URINE TRACE /HPF; BILIRUBIN,URINE NEGATIVE (NEGATIVE); CLARITY,URINE CLEAR; COLOR,URINE YELLOW; GLUCOSE, URINE (UA) NEGATIVE (NEGATIVE); KETONES,URINE NEGATIVE (NEGATIVE); LEUKOCYTE ESTERASE ,URINE NEGATIVE (NEGATIVE); NITRITE,URINE NEGATIVE (NEGATIVE); PROTEIN,URINE TRACE (NEGATIVE)
[2023-02-09 16:06] LABS: BASOPHILS # (AUTO) 0.1 10^3/uL (0.0-0.1); BASOPHILS % (AUTO) 1 % (0-10); EOSINOPHILS # (AUTO) 0.3 10^3/uL (0.0-0.3); EOSINOPHILS % (AUTO) 2 % (0-10); HEMATOCRIT 35 % (35-52); HEMOGLOBIN 12.5 g/dL (11.5-16.0); LYMPHOCYTES # (AUTO) 2.3 10^3/uL (1.0-4.0); LYMPHOCYTES % (AUTO) 19 % (12-44); MEAN CORPUSCULAR HEMOGLOBIN 33 pg (25-34); MEAN CORPUSCULAR HGB CONC 36 g/dL (32-36); MEAN CORPUSCULAR VOLUME 91 fL (80-99); MEAN PLATELET VOLUME 9.9 fL (9.0-12.2); MONOCYTES # (AUTO) 1.2 10^3/uL (0.0-1.0); MONOCYTES % (AUTO) 10 % (0-12); NEUTROPHILS # (AUTO) 8.3 10^3/uL (1.8-7.8); NEUTROPHILS % (AUTO) 68 % (42-75); PLATELET COUNT 256 10^3/uL (130-400); WHITE BLOOD COUNT 12.2 10^3/uL (4.3-11.0)
[2023-02-09 16:19] LABS: ALBUMIN 3.1 GM/DL (3.2-4.5); BILIRUBIN,TOTAL 0.2 MG/DL (0.1-1.0); CALCIUM 8.9 MG/DL (8.5-10.1); CREATININE SERUM 0.74 MG/DL (0.60-1.30); POTASSIUM 3.5 MMOL/L (3.6-5.0); TOTAL PROTEIN 5.9 GM/DL (6.4-8.2)
[2023-02-09] MEDS ORDERED: ACETAMINOPHEN 500 MG TABLET PO ONE (16:30)
[2023-02-09] MEDS ORDERED: ACETAMINOPHEN 500 MG TABLET ONE (16:37)
[2023-02-09] MEDS ORDERED: ACETAMINOPHEN 500 MG TABLET PO PRN (17:30)
--- NOTE | 2023-02-09 18:27 | History & Physical-OB ---
OB - Chief Complaint & HPI Date/Time Date of Admission: Date of Admission: Date seen by a Provider: Feb 09, 2023 Time Seen by a Provider: 17:00 Chief Complaint/History OB-Reason for Admission/Chief: Obstetrical Complication Hx : 5 Hx Para: 4 Expected Date of Delivery: Mar 04, 2023 Gestational Age in Weeks: 36 Gestational Age in Days: 5 Other at 36w5d with history of chronic hypertension, not requiring medications, presented to Labor and Delivery after being sent by clinic where she presented with headache and elevated blood pressure. She had a biophysical profile done that was 12/07 and showed EFW 70% and SOWMYA 24 (scheduled to be done due to chronic HTN), but she had onset of dull headache around 10 am, that got worse throughout the day. It feels like pressure behind her eyes and in her temples. She denies vision changes. She took tylenol this morning which helped a little. She vomited once this morning. She has had cough and congestion on and off for about 2 weeks and admits shortness of breath when she coughs. She denies chest pain, abdominal pain or swelling. Reports good movement and denies vaginal bleeding, leaking fluid or contractions. Allergies and Home Medications Allergies Coded Allergies: No Known Drug Allergies (Unverified , 01/18/11) Patient Home Medication List Home Medication List Reviewed: Yes Acetaminophen (Acetaminophen) 500 Mg Tablet, 1,000 MG PO, (Reported) Entered as Reported by: OCTAVIO CUELLO on 05/03/19 0658 Pnv95/Ferrous Fumarate/FA ( Vitamin Tablet) 28 Mg Iron-800 Mcg Tablet, 1 EACH PO DAILY, (Reported) Entered as Reported by: SON BUTLER on 02/09/231911 Last Action: New Order OB - History Hx of Present Care: Yes Ultrasounds: Abnormal US findings (has been having weekly BPPs, last week SOWMYA up to 28, referred to [facility], has not yet been seen, SOWMYA this week 24) Obstetrical Complications: Gestational Hypertension Information Induced Hypertension: Yes Maternal Gestational Diabetes: No Hemorrhage: No Obstetrical History Hx : 5 Hx Para: 4 Hx # Term Pregnancies: 4 Hx # Pregnancies: 0 Number of Living Children: 4 Hx Termination: No Hx Multiple Gestation: No Hx Ectopic : No Hx Stillbirth: No Hx Complication: No Hx Induced Hypertens: No Hx Maternal Gestational Diabet: No Hx Hemorrhage: No Delivery History Hx Dystocia: No Hx Forceps Assisted Delivery: No Hx Vacuum Extraction Assisted: No Hx Placenta Abnormality: No Hx Distress: No Hx Large For Gestational Age I: No Hx Small for Gestational Age I: No Hx Section: No Hx Vaginal Delivery Post C-Sec: No Hx Blood Disorders: No Adverse Rxn to Tranfusion: No Risk Variables Obstetrical Risk Variables: Not POA Anemia, Not POA Asthma, Not POA Autoimmune Disease, Not POA Bariatric Surgery, Not POA Bleeding Disorder, Not POA BMI >= 40, Not POA Cardiac Disease, Not POA Economic Housing Instabil, Not POA Gastrointestinal Disease, Not POA Gestational Diabetes, Not POA HIV; POA Hypertension; Not POA 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 Social Worker Anticoagulant U, Not POA Mental Health Disorder, Not POA Multiple , Not POA Neuromuscular Disease, Not POA Obstetrical VTE, Not POA Other Preeclampsia, Not POA Placenta Previa, Not POA Placental Abruption, Not POA Placenta Accreta Spectrum, Not POA Preexisting Diabetes, Not POA , Not POA Previous , Not POA Pulmonary Hypertension, Not POA Renal Disease, Not POA Severe Preeclampsia, Not POA Substance Abuse, Not POA Thyrotoxicosis Patient Past Medical History PMHx: Denies PSurgHx: tonsillectomy Social History/Family History Alcohol Use: Denies Use Recreational Drug Use: No Smoking Cessation: Current every day smoker 2nd Hand Smoke Exposure: Yes Immunizations Influenza Vaccine Up-to-Date: Yes; Up-to-Date (01/27/2023) First/Initial COVID19 Vaccine: 11/07/2020 Second COVID19 Vaccination: 12/08/2020 COVID19 Vaccine Plant Wrapper: Moderna Hepatitis B: Yes Tetanus Booster (TDap): Less than 5yrs (02/20/2019) Rubella: immune RPR/VDRL: Negative GBS Status: Unknown HBsAG: Negative OB - Admission Exam Physical Exam Vitals: Vital Signs 02/09/23 02/09/23 15:08 16:15 Temp 37.0 Pulse 90 Resp 18 B/P (MAP) 146/87 (106) Pulse Ox 98 O2 Delivery Room Air HEENT: EOMI Heart: Rhythm Normal Lungs: Clear Abdomen: Other (gravid, uterus non-tender, mild ttp epigastric and bilateral upper quadrants) Extremities: Normal Reflexes: Normal Heart Rate: 140's Accelerations: Accelerations Present Decelerations: No Decelerations Contractions on Admission: None Labs Laboratory Tests Test 02/09/23 14:50 02/09/23 15:54 Range/Units Urine Color YELLOW Urine Clarity CLEAR Urine pH 7.0 5-9 Urine Specific [place] 1.015 L 1.016-1.022 Urine Protein 12 6-12 MG/DL Urine Glucose (UA) NEGATIVE NEGATIVE Urine Ketones NEGATIVE NEGATIVE Urine Nitrite NEGATIVE NEGATIVE Urine Bilirubin NEGATIVE NEGATIVE Urine Urobilinogen 0.2 < = 1.0 MG/DL Urine Leukocyte Esterase NEGATIVE NEGATIVE Urine RBC (Auto) NEGATIVE NEGATIVE Urine RBC NONE /HPF Urine WBC 2-5 /HPF Urine Squamous Epithelial Cells 5-10 /HPF Urine Crystals PRESENT H /LPF Urine Amorphous Sediment RARE SHAKIR URATES H /LPF Urine Bacteria TRACE /HPF Urine Casts PRESENT /LPF Urine Granular Casts 5-10 H /LPF Urine Mucus NEGATIVE /LPF Urine Culture Indicated NO Urine Creatinine 73 30-125 MG/DL Urine Protein/Creatinine Ratio 0.16 White Blood Count 12.2 H 4.3-11.0 10^3/uL Red Blood Count 3.82 3.80-5.11 10^6/uL Hemoglobin 12.5 11.5-16.0 g/dL Hematocrit 35 35-52 % Mean Corpuscular Volume 91 80-99 fL Mean Corpuscular Hemoglobin 33 25-34 pg Mean Corpuscular Hemoglobin Concent 36 32-36 g/dL Red Cell Distribution Width 12.4 10.0-14.5 % Platelet Count 256 130-400 10^3/uL Mean Platelet Volume 9.9 9.0-12.2 fL Immature Granulocyte % (Auto) 1 % Neutrophils (%) (Auto) 68 42-75 % Lymphocytes (%) (Auto) 19 12-44 % Monocytes (%) (Auto) 10 0-12 % Eosinophils (%) (Auto) 2 0-10 % Basophils (%) (Auto) 1 0-10 % Neutrophils # (Auto) 8.3 H 1.8-7.8 10^3/uL Lymphocytes # (Auto) 2.3 1.0-4.0 10^3/uL Monocytes # (Auto) 1.2 H 0.0-1.0 10^3/uL Eosinophils # (Auto) 0.3 0.0-0.3 10^3/uL Basophils # (Auto) 0.1 0.0-0.1 10^3/uL Immature Granulocyte # (Auto) 0.1 0.0-0.1 10^3/uL Sodium Level 137 135-145 MMOL/L Potassium Level 3.5 L 3.6-5.0 MMOL/L Chloride Level 109 H 98-107 MMOL/L Carbon Dioxide Level 19 L 21-32 MMOL/L Anion Gap 9 5-14 MMOL/L Blood Urea Nitrogen 6 L 7-18 MG/DL Creatinine 0.74 0.60-1.30 MG/DL Estimat Glomerular Filtration Rate 110 BUN/Creatinine Ratio 8 Glucose Level 108 H 70-105 MG/DL Uric Acid 5.0 2.6-7.2 MG/DL Calcium Level 8.9 8.5-10.1 MG/DL Corrected Calcium 9.6 8.5-10.1 MG/DL Total Bilirubin 0.2 0.1-1.0 MG/DL Aspartate Amino Transf (AST/SGOT) 9 5-34 U/L Alanine Aminotransferase (ALT/SGPT) 14 0-55 U/L Alkaline Phosphatase 177 H 40-136 U/L Lactate Dehydrogenase 136 125-220 U/L Total Protein 5.9 L 6.4-8.2 GM/DL Albumin 3.1 L 3.2-4.5 GM/DL OB - Assessment/Plan/Diagnosis Assessment Admission Dx Gestational vs chronic hypertension complicating with acute headache 36 weeks gestation Admission Status: Observation Plan Problems: (1) Hypertension affecting in third trimester Assessment & Plan: Has been being monitored with weekly BPP and q4 growth, all normal except for mild polyhydramnios noted last week. Given new headache, preeclampsia labs drawn which were all normal including urine protein/creatinine ratio. Headache improving with acetaminophen and she does have some congestion and URI symptoms as well. Will monitor overnight and repeat labs in am. (2) Polyhydramnios affecting in third trimester Assessment & Plan: Mild idiopathic with SOWMYA 28 last week and 24 this week. Referred to high risk, no appointment scheduled as of yet. 1 hour glucola was normal. BPPs reassuring as noted above. Anatomy US normal at 21 weeks. (3) 36 weeks gestation of Assessment & Plan: Will check GBS inpatient in case of progression to preeclampsia and possible need for induction in short term. SON BUTLER MD Feb 09, 2023 18:27
[2023-02-09] MEDS ORDERED: PNV91TAB6 PO (19:12)
[2023-02-09] MEDS ORDERED: diphenhydrAMINE 25 MG TABLET PO ONE (22:15)
[2023-02-10 04:01] VITALS: BP 138/85
[2023-02-10 05:46] LABS: HEMATOCRIT 34 % (35-52); HEMOGLOBIN 11.7 g/dL (11.5-16.0); MEAN CORPUSCULAR HEMOGLOBIN 33 pg (25-34); MEAN CORPUSCULAR HGB CONC 35 g/dL (32-36); MEAN CORPUSCULAR VOLUME 93 fL (80-99); MEAN PLATELET VOLUME 11.1 fL (9.0-12.2); PLATELET COUNT 192 10^3/uL (130-400); WHITE BLOOD COUNT 11.3 10^3/uL (4.3-11.0)
[2023-02-10 05:54] LABS: ALBUMIN 2.8 GM/DL (3.2-4.5); POTASSIUM 3.6 MMOL/L (3.6-5.0)
[2023-02-10 05:55] LABS: CALCIUM 8.5 MG/DL (8.5-10.1)
[2023-02-10 05:56] LABS: TOTAL PROTEIN 5.8 GM/DL (6.4-8.2)
[2023-02-10 05:58] LABS: BILIRUBIN,TOTAL 0.2 MG/DL (0.1-1.0)
[2023-02-10 06:00] LABS: CREATININE SERUM 0.78 MG/DL (0.60-1.30)
[2023-02-10 09:15] VITALS: BP 133/86
[2023-02-10] MEDS ORDERED: METR-145 PO (13:02)
--- NOTE | 2023-02-10 13:02 | Discharge Summary ---
Discharge Summary Hospital Course Hospital Course Date of Admission: Feb 09, 2023 at 14:50 Admission Diagnosis : Chronic hypertension complicating Headache Family Physician/Provider: Son Elizabeth MD Date of Discharge: 02/10/23 Discharge Diagnosis: Chronic hypertension complicating Bacterial vaginosis Hospital Course: at 36w6d admitted overnight for observation due to superimposed headache with preexisting chronic HTN. Preeclampsia labs negative on admit and next morning and headache resolved. Had vaginal tenderness with GBS swab, wet prep showed clue cells, metronidazole prescribed. Labs and Pending Lab Test: Laboratory Tests 02/09/23 14:50: Urine Color YELLOW, Urine Clarity CLEAR, Urine pH 7.0, Urine Specific [place] 1.015L, Urine Protein 12, Urine Glucose (UA) NEGATIVE, Urine Ketones NEGATIVE, Urine Nitrite NEGATIVE, Urine Bilirubin NEGATIVE, Urine Urobilinogen 0.2, Urine Leukocyte Esterase NEGATIVE, Urine RBC (Auto) NEGATIVE, Urine RBC NONE, Urine WBC 2-5, Urine Squamous Epithelial Cells 5-10, Urine Crystals PRESENTH, Urine Amorphous Sediment RARE SHAKIR URATESH, Urine Bacteria TRACE, Urine Casts PRESENT, Urine Granular Casts 5-10H, Urine Mucus NEGATIVE, Urine Culture Indicated NO, Urine Creatinine 73, Urine Protein/Creatinine Ratio 0.16 02/09/23 15:54: White Blood Count 12.2H, Red Blood Count 3.82, Hemoglobin 12.5, Hematocrit 35, Mean Corpuscular Volume 91, Mean Corpuscular Hemoglobin 33, Mean Corpuscular Hemoglobin Concent 36, Red Cell Distribution Width 12.4, Platelet Count 256, Mean Platelet Volume 9.9, Immature Granulocyte % (Auto) 1, Neutrophils (%) (Auto) 68, Lymphocytes (%) (Auto) 19, Monocytes (%) (Auto) 10, Eosinophils (%) (Auto) 2, Basophils (%) (Auto) 1, Neutrophils # (Auto) 8.3H, Lymphocytes # (Auto) 2.3, Monocytes # (Auto) 1.2H, Eosinophils # (Auto) 0.3, Basophils # (Aut o) 0.1, Immature Granulocyte # (Auto) 0.1, Sodium Level 137, Potassium Level 3.5L, Chloride Level 109H, Carbon Dioxide Level 19L, Anion Gap 9, Blood Urea Nitrogen 6L, Creatinine 0.74, Estimat Glomerular Filtration Rate 110, BUN/Creatinine Ratio 8, Glucose Level 108H, Uric Acid 5.0, Calcium Level 8.9, Corrected Calcium 9.6, Total Bilirubin 0.2, Aspartate Amino Transf (AST/SGOT) 9, Alanine Aminotransferase (ALT/SGPT) 14, Alkaline Phosphatase 177H, Lactate Dehydrogenase 136, Total Protein 5.9L, Albumin 3.1L 02/10/23 05:15: White Blood Count 11.3H, Red Blood Count 3.59L, Hemoglobin 11.7, Hematocrit 34L, Mean Corpuscular Volume 93, Mean Corpuscular Hemoglobin 33, Mean Corpuscular H emoglobin Concent 35, Red Cell Distribution Width 12.6, Platelet Count 192, Mean Platelet Volume 11.1, Sodium Level 135, Potassium Level 3.6, Chloride Level 108H , Carbon Dioxide Level 15L, Anion Gap 12, Blood Urea Nitrogen 8, Creatinine 0.78, Estimat Glomerular Filtration Rate 103, BUN/Creatinine Ratio 10, Glucose Level 75, Calcium Level 8.5, Corrected Calcium 9.5, Total Bilirubin 0.2, Aspartate Amino Transf (AST/SGOT) 14, Alanine Aminotransferase (ALT/SGPT) 12, Alkaline Phosphatase 167H, Total Protein 5.8L, Albumin 2.8L 02/10/23 07:20: Urine Protein 16H, Urine Creatinine 94, Urine Protein/Creatinine Ratio 0.17 Microbiology 02/10/23 Wet Prep - Final, Complete Home Meds Active Metronidazole 500 Mg Tablet 500 Mg PO BID 7 Days Reported Vitamin Tablet (Pnv95/Ferrous Fumarate/FA) 28 Mg Iron-800 Mcg Tablet 1 Each PO DAILY Acetaminophen 500 Mg Tablet 1,000 Mg PO Assessment/Pt DC Instructions Follow up as scheduled outpatient. Discharge Diet: Low Sodium Diet Activity as Tolerated: Yes Discharge Physical Examination Allergies: Coded Allergies: No Known Drug Allergies (Unverified , 01/18/11) General Appearance: No Apparent Distress Respiratory: No Accessory Muscle Use Gastrointestinal: Non Tender Extremity: No Pedal Edema Neurologic/Psychiatric: Alert, Normal Mood/Affect SON ELIZABETH MD Feb 10, 2023 13:02
== END 2023-02-10 10:20 | disposition home or self-care (01) ==
LOC: LDRP 14:40 → WSo 14:48 → LDRP 14:48 → WSo 14:49 → LDRP 14:49 → UNDOADMOB 14:50 → LDRP 17:41 → UNDODISOB 02-10 10:40 → EDSTATUS 02-14 15:27
PROVIDERS: ADMIT Family Medicine; ATTEND Family Medicine
DX: O10.913 Unspecified pre-existing hypertension complicating pregnancy, third trimester (principal); O23.593 Infection of other part of genital tract in pregnancy, third trimester; O26.893 Other specified pregnancy related conditions, third trimester; O99.333 Smoking (tobacco) complicating pregnancy, third trimester; R51.9 Headache, unspecified; F17.200 Nicotine dependence, unspecified, uncomplicated; Z3A.36 36 weeks gestation of pregnancy
CPT/HCPCS: 80053 ×2; 81000; 82570 ×2; 83615; 84156 ×2; 84550; 85025; 85027; 87081; 87210; G0378; G0379; 36415

== ENCOUNTER 2023-02-16 11:52 | Inpatient (IN) | payer OTHER ==
[~2023-02-16] VITALS: Ht 167.7 cm; Wt 101.3 kg
[2023-02-16] VITALS (52 sets, daily range): BP systolic 119–190; BP diastolic 62–102
[~2023-02-16 11:52] MED LIST changes: +METR-145 PO; +PNV91TAB6 PO
[2023-02-16] MEDS ORDERED: LACTATED RINGERS 1,000 ML 500 ML IV PRN (12:00)
[2023-02-16] MEDS ORDERED: MINERAL OIL 30 ML UDC TOP PRN (12:00)
[2023-02-16] MEDS ORDERED: LABETALOL 5 mg/ml 20 ml SINGLE DOSE VIAL IV PRN (12:00)
[2023-02-16] MEDS ORDERED: OXYTOCIN DRIP PRE-MIX 500 ML IV SCH (12:00)
--- NOTE | 2023-02-16 12:10 | History & Physical-OB ---
OB - Chief Complaint & HPI Date/Time Date of Admission: Date of Admission: Feb 16, 2023 at 11:52 Date seen by a Provider: Feb 16, 2023 Time Seen by a Provider: 14:45 Chief Complaint/History OB-Reason for Admission/Chief: Obstetrical Complication Hx : 5 Hx Para: 4 Expected Date of Delivery: Mar 04, 2023 Gestational Age in Weeks: 37 Gestational Age in Days: 5 Indication for induction: medical complication History of Labs B+, antibody neg, RI. HIV/HepB/HepC/RPR NR. GC/chlamydia neg. 1 hour glucola nml. GBS negative. Other at 37w5d, complicated by hypertension, first elevated blood pressure documented at approximately 9 weeks, prior to intake visit, at a walk- in visit with BP 142/88. Baseline CMP and 24 hour urine protein were normal. BP remained above 120/80 but below 14/90 until 24 week visit, when she again had blood pressure 142/88. Repeat labs remained normal and she began growth scans every 4 weeks and started weekly BPP at 32 weeks. At 26 weeks she had BP of 142/92, and for the remainder of her visits she remained above 120/80 but below 140/90 without treatment. Growth was reassuring, but she developed mild polyhydramnios noted on BPP and was referred to high pressure kettle operator. She was seen by MFM today and had elevated BP and headache, persistent mild poly with otherwise normal ultrasound and they recommended proceeding with induction at this time. Pt reports headache, denies swelling, vision changes or upper abdominal pain. Allergies and Home Medications Allergies Coded Allergies: No Known Drug Allergies (Unverified , 01/18/11) Patient Home Medication List Home Medication List Reviewed: Yes Acetaminophen (Acetaminophen) 500 Mg Tablet, 1,000 MG PO, (Reported) Entered as Reported by: OCTAVIO CUELLO on 05/03/19 0658 Last Action: Reviewed Metronidazole (Metronidazole) 500 Mg Tablet, 500 MG PO BID Prescribed by: SON BUTLER on 02/10/23 1302 Last Action: Reviewed Pnv95/Ferrous Fumarate/FA ( Vitamin Tablet) 28 Mg Iron-800 Mcg Tablet, 1 EACH PO DAILY, (Reported) Entered as Reported by: SON BUTLER on 02/09/23 1912 Last Action: Reviewed OB - History Hx of Present Ultrasounds: Abnormal US findings (mild polyhydramnios, otherwise normal) Obstetrical Complications: Gestational Hypertension Obstetrical History Hx : 5 Hx Para: 4 Hx # Term Pregnancies: 4 Hx # Pregnancies: 0 Number of Living Children: 4 Hx Termination: No Hx Multiple Gestation: No Hx Ectopic : No Hx Stillbirth: No Hx Complication: No Hx Induced Hypertens: No Hx Maternal Gestational Diabet: No Hx Hemorrhage: No Delivery History Hx Dystocia: No Hx Forceps Assisted Delivery: No Hx Vacuum Extraction Assisted: No Hx Placenta Abnormality: No Hx Distress: No Hx Large For Gestational Age I: No Hx Small for Gestational Age I: No Hx Section: No Hx Vaginal Delivery Post C-Sec: No Hx Blood Disorders: No Adverse Rxn to Tranfusion: No Risk Variables Obstetrical Risk Variables: Not POA Anemia, Not POA Asthma, Not POA Autoimmune Disease, Not POA Bariatric Surgery, Not POA Bleeding Disorder, Not POA BMI >= 40, Not POA Cardiac Disease, Not POA Economic Housing Instabil, Not POA G astrointestinal Disease, Not POA Gestational Diabetes, Not POA HIV; POA Hypertension; Not POA 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 Anticoagulant U, Not POA Mental Health Disorder, Not POA Multiple , Not POA Neuromuscular Disease, Not POA Obstetrical VTE, Not POA Other Preeclampsia, Not POA Placenta Previa, Not POA Placental Abruption, Not POA Placenta Accreta Spectrum, Not POA Preexisting Diabetes, Not POA , Not POA Previous , Not POA Pulmonary Hypertension, Not POA Renal Disease, Not POA Severe Preeclampsia, Not POA Substance Abuse, Not POA Thyrotoxicosis Patient Past Medical History PMHx: Denies PSurgHx: tonsillectomy Social History/Family History Alcohol Use: Denies Use 2nd Hand Smoke Exposure: Yes Immunizations Influenza Vaccine Up-to-Date: Yes; Up-to-Date (01/27/2023) First/Initial COVID19 Vaccine: 11/07/2020 Second COVID19 Vaccination: 12/08/2020 Hepatitis B: Yes Tetanus Booster (TDap): Less than 5yrs (02/20/2019) Rubella: immune RPR/VDRL: Negative GBS Status: Negative HBsAG: Negative OB - Admission Exam Physical Exam HEENT: NCAT Heart: Rhythm Normal Lungs: Clear, Equal Abdomen: Non tender Extremities: Normal Cervical Dilatation: other (cervical exam on admit per nursing 1-2/0/-3) Heart Rate: 140's Decelerations: No Decelerations Short Term Variability: Present Chcf Variability: Average (6-25) Velasquez Scoring Tool (Modified) Dilation (cm): 1-2cm (1) Effacement (%): 0-30% (0) Descent/Station: -3 (0) Cervix Consistency: Soft (2) Cervix Position: Posterior (0) Add 1 point for: Each previous vaginal delivery (1) (4) Velasquez Score: 7 OB - Assessment/Plan/Diagnosis Assessment Admission Dx Term at 37 weeks gestation Chronic versus gestational hypertension Mild polyhydramnios Admission Status: Inpatient Order (span 2 midnights) Reason for Inpatient Admission: labor, delivery and course Plan Problems: (1) Hypertension affecting in third trimester Assessment & Plan: Preeclampsia labs negative, BP elevation not at severe range, will treat with labetalol if above 160/110. Monitor closely. Dr. 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 (2) Polyhydramnios affecting in third trimester SNO BUTLER MD Feb 16, 2023 12:10
--- OUTSIDE RECORDS SUMMARY | 2023-02-16 12:18 | XMS REPORT ---
Author Author [facility] ter of [facility] ter of [facility] Address Unknown Phone Unavailable Care Team Providers Care Grill Associate Name Role Phone HARRISKAREN Unavailable PROBLEMS Type Condition ICD9-CM Code [id number] Code Onset Dates Condition Status W/U Status Risk SNOMED Code Notes Problem Urinary urgency R39.15 confirmed 94257682 Problem Normal in first trimester Z34.91 confirmed 98908333 Problem Tobacco use disorder F17.200 confirmed 123710264 Problem Elevated blood pressure affecting in second trimester, antepartum O16.2 confirmed 67635243 Problem Adjustment disorder with disturbance of emotion F43.29 confirmed 85516177 Problem Elevated blood pressure affecting in third trimester, antepartum O16.3 confirmed Problem Missed menses N92.6 confirmed 432850 00 Problem care in first trimester Z34.91 confirm 176190069 ALLERGIES No Known Allergies ENCOUNTERS from 1990 to 2022-11-16 Encounter Location Date Provider Diagnosis [facility] [id number] [place] [address] Nov, KAREN HARRIS Encounter for immunization Z23 IMMUNIZATIONS Vaccine Route Administration Date Status 2nd Dose HRSA MODERNA, COVID -19, 0.5mL IM Intramuscular Dec 08, 2020 Administered 1st Dose HRSA MODERNA, COVID -19, 0.5mL IM Intramuscular November 07, 2020 Administered STATE FUNDED TDAP (BOOSTRIX) IM Intramuscular Feb 20, 2019 Administered PRIVATE FLULAVAL QUAD 0.5ML (6 MO AND UP) 2019 IM Intramuscular Jan 19, 2019 Administered influenza IIV3 (history) Unknown Jan 13, 2011 Ad ministered PRIVATE TDAP (ADACEL) Unknown Jan 13, 2011 Admin istered SOCIAL HISTORY Sex Assigned At : Social History Observation Description Sex Assigned At Unknown Alcohol Screen (Audit-C) Question Answer Notes Did you have a drink containing alcohol in the p ast year? No Points 0 Interpretation Negative Cessation Question Answer Notes Date Tobacco Cessation Provided: 07/09/2019 Sexual History Question Answer Notes Had sex in the past 12 months (vaginal, oral, or anal)? Yes Last menstrual period 05/20/2022 Have you ever had a Sexually transmitted disease ? No Prevention strategies discussed: Condoms with Men only Use protection? No PHQ2 Question Answer Notes In the last 2 weeks, how oft en have you had little interest or pleasure in doing things? Not at all In the last 2 weeks, how oft en have you been feeling down, depressed, or hopeless? Not at all Total PHQ2 Score 0 REASON FOR REFERRAL No Information MEDICATIONS Medication SIG (Take, Route, Frequency, Duration) Notes Start Date End Date Status Vitamins 28-0.8 MG 1 tablet Orally Once a day A ctive REASON FOR VISIT COVID-19 Vaccine Dose 2/tmesser ma MEDICAL (GENERAL) HISTORY Type Description Date Surgical History tonsillectomy 1998 Hospitalization History childbirth, surgery MENTAL STATUS No Information ASSESSMENTS Encounter Date Diagnosis Assessment Notes Treatment Notes Treatment Clinical Notes Nov, Encounter for immunization (ICD-10 - Z23) PLAN OF TREATMENT Next Appt Details Provider Name:SON BLANK , 2022-11-25 10:20:00 AM, [address] [facility], [id number], [place], [address], Insurance Providers Payer Name Payer Address Payer Phone Insured Name Patient Relationship to Insured Coverage Start Date Coverage End Date Subscriber Number Group Number [facility] [address] [address] [facility] [phone] Cris Oglesby Spouse - patient is the spouse of the insured 9 [id number] MEDICATIONS ADMINISTERED Medication Instructions Date of Administration Dosag e DEPO PROVERA (150 MG/ML) Sep, 150 mg DEPO PROVERA (150 MG/ML) Dec, 150 mg DEPO PROVERA (150 MG/ML) Apr, 150 mg DEPO PROVERA (150 MG/ML) Jun, 150 mg DEPO PROVERA (150 MG/ML) Apr, 150 mg
--- OUTSIDE RECORDS SUMMARY | 2023-02-16 12:20 | XMS REPORT ---
Author Author [facility] ter of [facility] ter of [facility] Address Unknown Phone Unavailable Care Team Providers Care Press Operator Printing Name Role Phone HARRISKAREN Unavailable PROBLEMS Type Condition ICD9-CM Code [id number] Code Onset Dates Condition Status W/U Status Risk SNOMED Code Notes Problem Urinary urgency R39.15 confirmed 52561271 Problem care in first trimester Z34.91 confirm 230273445 Problem Tobacco use disorder F17.200 confirmed 009119852 Problem Normal in first trimester Z34.91 confirmed 75170635 Problem Adjustment disorder with disturbance of emotion F43.29 confirmed 60855973 Problem Elevated blood pressure affecting in third trimester, antepartum O16.3 confirmed Problem Missed menses N92.6 confirmed 074899 00 ALLERGIES No Known Allergies ENCOUNTERS from 1990 to 2022-10-17 Encounter Location Date Provider Diagnosis [facility] [address] [facility] [id number] [address] Oct, KAREN HARRIS Encounter for immunization Z23 IMMUNIZATIONS Vaccine Route Administration Date Status influenza IIV3 (history) Unknown Jan 13, 2011 Ad ministered PRIVATE FLULAVAL QUAD 0.5ML (6 MO AND UP) 2019 IM Intramuscular Jan 19, 2019 Administered STATE FUNDED TDAP (BOOSTRIX) IM Intramuscular Feb 20, 2019 Administered 2nd Dose HRSA MODERNA, COVID -19, 0.5mL IM Intramuscular Dec 08, 2020 Administered 1st Dose HRSA MODERNA, COVID -19, 0.5mL IM Intramuscular November 07, 2020 Administered PRIVATE TDAP (ADACEL) Unknown Sept 14, 2011 Admin istered SOCIAL HISTORY Sex Assigned [...] Duration) Notes Start Date End Date Status Promethazine-DM 6.25-15 MG/5ML 5 mL as needed Orally every 6 hrs for 5 days August, Active Vitamins 28-0.8 MG 1 tablet Orally Once a day Active REASON FOR VISIT COVID-19 Vaccine Dose 1 MEDICAL (GENERAL) HISTORY Type Description Date Surgical History tonsillectomy 1998 Hospitalization History childbirth, surgery MENTAL STATUS No Information ASSESSMENTS Encounter Date Diagnosis Assessment Notes Treatment Notes Treatment Clinical Notes Oct, Encounter for immunization (ICD-10 - Z23) PLAN OF TREATMENT Medication Medication Name Sig Start Date Stop Date Promethazine-DM 6.25-15 MG/5ML 5 mL as n eeded Orally every 6 hrs for 5 days August, Next Appt Details Provider Name:SHERYL MCLEAN , 2022-10-20 10:20:00 AM, [address] [facility], [place], [address], Insurance Providers Payer Name Payer Address Payer Phone Insured Name Patient Relationship to Insured Coverage Start Date Coverage End Date Subscriber Number Group Number [facility] [address] [address] [facility] [id number] [phone] Cris Oglesby Spouse - patient is the spouse of the insured 9 [id number] MEDICATIONS ADMINISTERED Medication Instructions Date of Administration Dosag e DEPO PROVERA (150 MG/ML) Apr, 150 mg DEPO PROVERA (150 MG/ML) Sep, 150 mg DEPO PROVERA (150 MG/ML) Apr, 150 mg DEPO PROVERA (150 MG/ML) Dec, 150 mg DEPO PROVERA (150 MG/ML) Jun, 150 mg
--- OUTSIDE RECORDS SUMMARY | 2023-02-16 12:20 | XMS REPORT ---
Author Author Counts Include [facility] ter of [facility] ter of [facility] Address Unknown Phone Unavailable Care Team Providers Care Manager Reading Name Role Phone KAREN HARRIS Unavailable PROBLEMS Type Condition ICD9-CM Code QEM12-MK Code Onset Dates Condition Status W/U Status Risk SNOMED Code Notes Problem Urinary urgency R39.15 confirmed 32846919 Problem care in first trimester Z34.91 confirm 302502148 Problem Tobacco use disorder F17.200 confirmed 520240785 Problem Normal in first trimester Z34.91 confirmed 78996631 Problem Adjustment disorder with disturbance of emotion F43.29 confirmed 10750238 Problem Elevated blood pressure affecting in third trimester, antepartum O16.3 confirmed Problem Missed menses N92.6 confirmed 692123 00 ALLERGIES No Known Allergies ENCOUNTERS from 1990 to 2022-10-05 Encounter Location Date Provider Diagnosis [facility] [address] [facility] [id number] [address] Sep, KAREN HARRIS Exposure to COVID-19 virus Z20.828 IMMUNIZATIONS Vaccine Route Administration Date Status PRIVATE FLULAVAL QUAD 0.5ML (6 MO AND UP) 2019 IM Intramuscular Jan 19, 2019 Administered PRIVATE TDAP (ADACEL) Unknown Jan 13, 2011 Admin istered 2nd Dose HRSA MODERNA, COVID -19, 0.5mL IM Intramuscular Dec 08, 2020 Administered 1st Dose HRSA MODERNA, COVID -19, 0.5mL IM Intramuscular November 07, 2020 Administered STATE FUNDED TDAP (BOOSTRIX) IM Intramuscular Feb 20, 2019 Administered influenza IIV3 (history) Unknown Jan 13, 2011 Ad ministered SOCIAL HISTORY Sex Assigned At : Social [...] Once a day Active REASON FOR VISIT exposed no symptoms/ class 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/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 van MEDICAL (GENERAL) HISTORY Type Description Date Surgical History tonsillectomy 1998 Hospitalization History childbirth, surgery MENTAL STATUS No Information ASSESSMENTS Encounter Date Diagnosis Assessment Notes Treatment Notes Treatment Clinical Notes Sep, Exposure to COVID-19 virus (ICD-10 - Z20.828) Sep, Other Patient was instructed to self-isolate at home until further instruction from clinic staff PLAN OF TREATMENT Medication Medication Name Sig Start Date Stop Date Promethazine-DM 6.25-15 MG/5ML 5 mL as n eeded Orally every 6 hrs for 5 days August, Insurance Providers Payer Name Payer Address Payer Phone Insured Name Patient Relationship to Insured Coverage Start Date Coverage End Date Subscriber Number Group Number [facility] [address] [address] [facility] [id number] Cris Oglesby Spouse - patient is the spouse of the insured 9 [id number] MEDICATIONS ADMINISTERED Medication Instructions Date of Administration Dosag e DEPO PROVERA (150 MG/ML) Apr, 150 mg DEPO PROVERA (150 MG/ML) Sep, 150 mg DEPO PROVERA (150 MG/ML) Apr, 150 mg DEPO PROVERA (150 MG/ML) Dec, 150 mg DEPO PROVERA (150 MG/ML) Jun, 150 mg
[2023-02-16] MEDS: D5 LR 1,000 ML IV SOLN 1,000 ML IV SCH ×2 (12:24→20:19)
[2023-02-16 12:41] LABS: BASOPHILS # (AUTO) 0.1 10^3/uL (0.0-0.1); BASOPHILS % (AUTO) 1 % (0-10); EOSINOPHILS # (AUTO) 0.3 10^3/uL (0.0-0.3); EOSINOPHILS % (AUTO) 3 % (0-10); HEMATOCRIT 37 % (35-52); HEMOGLOBIN 13.5 g/dL (11.5-16.0); LYMPHOCYTES % (AUTO) 19 % (12-44); MEAN CORPUSCULAR HEMOGLOBIN 34 pg (25-34); MEAN CORPUSCULAR HGB CONC 37 g/dL (32-36); MEAN CORPUSCULAR VOLUME 93 fL (80-99); MONOCYTES % (AUTO) 10 % (0-12); NEUTROPHILS # (AUTO) 6.9 10^3/uL (1.8-7.8); NEUTROPHILS % (AUTO) 66 % (42-75); PLATELET COUNT 292 10^3/uL (130-400); WHITE BLOOD COUNT 10.4 10^3/uL (4.3-11.0)
[2023-02-16 12:56] LABS: AMORPHOUS SEDIMENT,UR FEW AMOR URATES /LPF; BACTERIA,URINE LARGE /HPF; BILIRUBIN,URINE NEGATIVE (NEGATIVE); CLARITY,URINE CLEAR; COLOR,URINE YELLOW; GLUCOSE, URINE (UA) NEGATIVE (NEGATIVE); KETONES,URINE NEGATIVE (NEGATIVE); LEUKOCYTE ESTERASE ,URINE 1+ (NEGATIVE); NITRITE,URINE NEGATIVE (NEGATIVE); PROTEIN,URINE TRACE (NEGATIVE); RBC,URINE RARE /HPF
[2023-02-16 12:58] LABS: ALBUMIN 3.3 GM/DL (3.2-4.5); BILIRUBIN,TOTAL 0.2 MG/DL (0.1-1.0); CALCIUM 8.9 MG/DL (8.5-10.1); CREATININE SERUM 0.74 MG/DL (0.60-1.30); POTASSIUM 3.8 MMOL/L (3.6-5.0); TOTAL PROTEIN 6.5 GM/DL (6.4-8.2)
[2023-02-16] MEDS ORDERED: fentaNYL 2 mcg/ml BUPIVA 0.125 100 ML ONE (13:31)
[2023-02-16] MEDS ORDERED: fentaNYL INJECTION 100 MCG/2 ML VIAL ONE (13:41)
[2023-02-16] MEDS ORDERED: BUPIVACAINE 0.25% 10 ML VIAL ONE (13:41)
[2023-02-16] MEDS ORDERED: LACTATED RINGERS 1,000 ML 1,000 ML IV SCH (13:45)
[2023-02-16] MEDS ORDERED: ONDANSETRON INJECTION 4 MG/2 ML (SDV) IV PRN (13:45)
[2023-02-16] MEDS ORDERED: diphenhydrAMINE INJ 50 MG/ML VIAL IV PRN (13:45)
[2023-02-16] MEDS ORDERED: NALOXONE 0.4 MG/ML 1 ML VIAL IV PRN (13:45)
[2023-02-16] MEDS ORDERED: fentaNYL 2 mcg/ml BUPIVA 0.125 100 ML EPI SCH (13:45)
[2023-02-16] MEDS: CATHETER FLUSH 10 ML SYR IV SCH ×2 (14:21→22:41)
[2023-02-16] MEDS ORDERED: ACETAMINOPHEN 500 MG TABLET PO ONE (18:45)
--- NOTE | 2023-02-16 20:55 | Labor Progress Note ---
Labor Progress Note Labor Progress Note Date Seen by Provider: Feb 16, 2023 Time Seen by Provider: 19:10 Subjective: Pt has posterior headache. BP elevated, has had a few severe level, but none persistent, resolved within minutes without treatment. Currently 142/92 at time of my exam. Objective: Cervical exam: /2 Consistency: soft Position: Anterior Presentation: Vertex heart tones: 140 beats per minute, moderate variability, reactive Tocometer: 4-5 ctx/10 minutes Assessment/Plan: Cris Oglesby is a 32 /Para 5 / 4,Gestational Age (wks)37 here for induction for hypertension and mild polyhydramnios. AROM done at time of exam with scalp electrode to minimize large fluid loss at one time, and I monitored the head with internal hand as it descended after rupture, confirming no cord prolapse. After rupture and descent, head well applied to cervix. FSE/TOCO Continue pitocin Anesthesia: epidural Anticipate vaginal delivery. Vitals - Labs Vital Signs - I&O Vital Signs Date Time Temp Pulse Resp B/P (MAP) Pulse Ox O2 Delivery O2 Flow Rate FiO2 02/16/23 20:00 65 20 133/74 (93) 98 Room Air 02/16/23 19:45 73 18 129/70 (89) 99 Room Air 02/16/23 19:30 37.0 72 18 161/90 (113) 99 Room Air 02/16/23 19:15 87 18 143/92 (109) 99 Room Air 02/16/23 19:00 107 18 146/94 (111) 100 Room Air 02/16/23 18:45 98 18 146/94 (111) 100 Room Air 02/16/23 18:30 90 18 156/89 (111) 99 Room Air 02/16/23 18:15 99 18 171/97 (121) 98 Room Air 02/16/23 18:00 85 18 140/87 (104) 98 Room Air 02/16/23 17:45 96 18 142/82 (102) 99 Room Air 02/16/23 17:30 97 18 143/88 (106) 99 Room Air 02/16/23 17:15 97 18 136/92 (107) 99 Room Air 02/16/23 17:00 90 18 136/93 (107) 99 Room Air 02/16/23 16:45 90 18 136/93 (107) 99 Room Air 02/16/23 16:30 80 18 145/86 (105) 97 Room Air 02/16/23 16:15 36.8 106 18 139/84 (102) 99 Room Air 02/16/23 16:00 90 18 144/82 (102) 98 Room Air 02/16/23 15:45 102 18 135/78 (97) 98 Room Air 02/16/23 15:30 116 18 119/72 (88) 98 Room Air 02/16/23 15:15 86 18 129/78 (95) 96 Room Air 02/16/23 15:00 89 18 139/86 (103) 99 Room Air 02/16/23 14:45 36.5 90 18 132/79 (96) 99 Room Air 02/16/23 14:30 95 18 137/71 (93) 99 Room Air 02/16/23 14:25 100 18 132/67 (88) 99 Room Air 02/16/23 14:20 85 18 130/68 (88) 98 Room Air 02/16/23 14:15 93 18 119/62 (81) 99 Room Air 02/16/23 14:10 97 18 130/66 (87) 99 Room Air 02/16/23 14:05 95 18 148/89 (108) 99 Room Air 02/16/23 14:00 95 18 165/102 (123) 100 Room Air 02/16/23 13:55 98 18 160/96 (117) 100 Room Air 02/16/23 13:50 96 18 158/93 (114) 99 Room Air 02/16/23 13:45 90 18 153/96 (115) Room Air 02/16/23 13:30 100 18 147/95 (112) Room Air 02/16/23 13:15 100 18 141/95 (110) Room Air 02/16/23 13:00 88 18 152/92 (112) Room Air 02/16/23 12:45 99 18 150/95 (113) Room Air 02/16/23 12:30 106 18 141/97 (112) Room Air 02/16/23 11:52 36.8 116 18 142/93 (109) 99 Room Air 02/16/23 11:52 36.8 116 18 99 Room Air Labs Laboratory Tests 02/16/23 12:10: Urine Color YELLOW, Urine Clarity CLEAR, Urine pH 7.0, Urine Specific [place] 1.020, Urine Protein TRACEH, Urine Glucose (UA) NEGATIVE, Urine Ketones NEGATIVE, Urine Nitrite NEGATIVE, Urine Bilirubin NEGATIVE, Urine Urobilinogen 0.2, Urine Leukocyte Esterase 1+H, Urine RBC (Auto) NEGATIVE, Urine RBC RARE, Urine WBC 10-25H, Urine Squamous Epithelial Cells 10-25H, Urine Crystals PRESENTH, Urine Amorphous Sediment FEW SHAKIR URATESH, Urine Bacteria LARGEH, Urine Casts NONE, Urine Mucus NEGATIVE, Urine Trichomonas , Urine Culture Indicated YES 02/16/23 12:17: Urine Protein 17H, White Blood Count 10.4, Red Blood Count 3.99, Hemoglobin 13.5, Hematocrit 37, Mean Corpuscular Volume 93, Mean Corpuscular Hemoglobin 34, Mean Corpuscular Hemoglobin Concent 37H, Red Cell Distribution Width 12.7, Platelet Count 292, Mean Platelet Volume 10.0, Immature Granulocyte % (Auto) 1, Neutrophils (%) (Auto) 66, Lymphocytes (%) (Auto) 19, Monocytes (%) (Auto) 10, Eosinophils (%) (Auto) 3, Basophils (%) (Auto) 1, Neutrophils # (Auto) 6.9, L ymphocytes # (Auto) 2.0, Monocytes # (Auto) 1.0, Eosinophils # (Auto) 0.3, Basophils # (Auto) 0.1, Immature Granulocyte # (Auto) 0.1, Urine Creatinine 108, Urine Protein/Creatinine Ratio 0.16, Sodium Level 136, Potassium Level 3.8, Chloride Level 107, Carbon Dioxide Level 17L, Anion Gap 12, Blood Urea Nitrogen 7, Creatinine 0.74, Estimat Glomerular Filtration Rate 110, BUN/Creatinine Ratio 9, Glucose Level 90, Uric Acid 5.0, Calcium Level 8.9, Corrected Calcium 9.5, Total Bilirubin 0.2, Aspartate Amino Transf (AST/SGOT) 10, Alanine Aminotransferase (ALT/SGPT) 12, Alkaline Phosphatase 196H, Total Protein 6.5, Albumin 3.3, Syphilis Total Antibody Negative SON BUTLER MD Feb 16, 2023 20:55
[2023-02-16] MEDS: OXYTOCIN DRIP PRE-MIX 500 ML IV SCH ×2 (22:28→23:00)
[2023-02-16] MEDS ORDERED: LIDOCAINE 2% w/EPI 1:200,000 20 ML VIAL ONE (22:36)
[2023-02-16] MEDS ORDERED: LIDOCAINE 2% w/EPI 1:100,000 20 ML VIAL INJ ONE (22:45)
--- NOTE | 2023-02-16 23:04 | OB Labor & Delivery Record ---
Vag Delivery Note Vag Delivery Note Date of Delivery: 02/16/23 Preoperative Diagnosis: Cris Oglesby is a (32 /Para 5 / 4, Gestational Age (wks)37with 5 days Postoperative Diagnosis: Same Attending Surgeon/Physician: Son Elizabeth MD Anesthesia: Epidural Delivery Type: Findings: Viable male infant, apgars 8/8, weight 7#0 Lacerations: right labial Intact placenta with 3 vessel cord. Nuchal cord x 1, no body cord or shoulder dystocia Estimated Blood Loss: 200 ml Complications: None Condition: Stable Description of Procedure: The patient is a 32 year old female who presented for induction of labor for hypertension and polyhydramnios. She was admitted and informed consent was obtained. Her labor course was unremarkable. She progressed to complete dilatation and began to push. She was then set up for delivery. The infant's head was delivered atraumatically in the OA position. A nuchal cord was easily reduced. The shoulders and remainder of the 's body were then delivered without difficulty. Upon delivery, the was vigorous and the mouth and nares were bulb suctioned. After a delay cord was doubly clamped and cut and the was handed off to nursery staff per mother's request. An intact placenta with 3-vessel cord delivered via Johan and there was found to be minimal bleeding.~ Vigorous fundal massage was performed and the fundus was found to be firm. IV oxytocin was given. Examination of the vagina and perineum revealed a right labial laceration repaired in the simple running fashion with 3-0 vicryl rapide suture. Following the repair, sponge, instrument and needle counts were correct. Mom and baby were both in stable condition in the labor suite. Vitals - Labs Vital Signs - I&O Vital Signs Date Time Temp Pulse Resp B/P (MAP) Pulse Ox O2 Delivery O2 Flow Rate FiO2 02/16/23 21:40 36.8 72 18 190/90 (123) 100 Room Air 02/16/23 21:20 90 18 143/83 (103) 100 Room Air 02/16/23 21:05 78 18 131/77 (95) 100 Room Air 02/16/23 20:50 99 18 125/66 (85) 100 Room Air 02/16/23 20:35 71 18 127/70 (89) 98 Room Air 02/16/23 20:20 36.9 81 18 128/72 (90) 99 Room Air 02/16/23 20:00 65 20 133/74 (93) 98 Room Air 02/16/23 19:45 73 18 129/70 (89) 99 Room Air 02/16/23 19:30 37.0 72 18 161/90 (113) 99 Room Air 02/16/23 19:15 87 18 143/92 (109) 99 Room Air 02/16/23 19:00 107 18 146/94 (111) 100 Room Air 02/16/23 18:45 98 18 146/94 (111) 100 Room Air 02/16/23 18:30 90 18 156/89 (111) 99 Room Air 02/16/23 18:15 99 18 171/97 (121) 98 Room Air 02/16/23 18:00 85 18 140/87 (104) 98 Room Air 02/16/23 17:45 96 18 142/82 (102) 99 Room Air 02/16/23 17:30 97 18 143/88 (106) 99 Room Air 02/16/23 17:15 97 18 136/92 (107) 99 Room Air 02/16/23 17:00 90 18 136/93 (107) 99 Room Air 02/16/23 16:45 90 18 136/93 (107) 99 Room Air 02/16/23 16:30 80 18 145/86 (105) 97 Room Air 02/16/23 16:15 36.8 106 18 139/84 (102) 99 Room Air 02/16/23 16:00 90 18 144/82 (102) 98 Room Air 02/16/23 15:45 102 18 135/78 (97) 98 Room Air 02/16/23 15:30 116 18 119/72 (88) 98 Room Air 02/16/23 15:15 86 18 129/78 (95) 96 Room Air 02/16/23 15:00 89 18 139/86 (103) 99 Room Air 02/16/23 14:45 36.5 90 18 132/79 (96) 99 Room Air 02/16/23 14:30 95 18 137/71 (93) 99 Room Air 02/16/23 14:25 100 18 132/67 (88) 99 Room Air 02/16/23 14:20 85 18 130/68 (88) 98 Room Air 02/16/23 14:15 93 18 119/62 (81) 99 Room Air 02/16/23 14:10 97 18 130/66 (87) 99 Room Air 02/16/23 14:05 95 18 148/89 (108) 99 Room Air 02/16/23 14:00 95 18 165/102 (123) 100 Room Air 02/16/23 13:55 98 18 160/96 (117) 100 Room Air 02/16/23 13:50 96 18 158/93 (114) 99 Room Air 02/16/23 13:45 90 18 153/96 (115) Room Air 02/16/23 13:30 100 18 147/95 (112) Room Air 02/16/23 13:15 100 18 141/95 (110) Room Air 02/16/23 13:00 88 18 152/92 (112) Room Air 02/16/23 12:45 99 18 150/95 (113) Room Air 02/16/23 12:30 106 18 141/97 (112) Room Air 02/16/23 11:52 36.8 116 18 142/93 (109) 99 Room Air 02/16/23 11:52 36.8 116 18 99 Room Air Labs Laboratory Tests 02/16/23 12:10: Urine Color YELLOW, Urine Clarity CLEAR, Urine pH 7.0, Urine Specific [place] 1.020, Urine Protein TRACEH, Urine Glucose (UA) NEGATIVE, Urine Ketones NEGATIVE, Urine Nitrite NEGATIVE, Urine Bilirubin NEGATIVE, Urine Urobilinogen 0.2, Urine Leukocyte Esterase 1+H, Urine RBC (Auto) NEGATIVE, Urine RBC RARE, Urine WBC 10-25H, Urine Squamous Epithelial Cells 10-25H, Urine Crystals PRESENTH, Urine Amorphous Sediment FEW SHAKIR URATESH, Urine Bacteria LARGEH, Urine Casts NONE, Urine Mucus NEGATIVE, Urine Trichomonas , Urine Culture Indicated YES 02/16/23 12:17: Urine Protein 17H, White Blood Count 10.4, Red Blood Count 3.99, Hemoglobin 13.5, Hematocrit 37, Mean Corpuscular Volume 93, Mean Corpuscular Hemoglobin 34, Mean Corpuscular Hemoglobin Concent 37H, Red Cell Distribution Width 12.7, Platelet Count 292, Mean Platelet Volume 10.0, Immature Granulocyte % (Auto) 1, Neutrophils (%) (Auto) 66, Lymphocytes (%) (Auto) 19, Monocytes (%) (Auto) 10, Eosinophils (%) (Auto) 3, Basophils (%) (Auto) 1, Neutrophils # (Auto) 6.9, Lymphocytes # (Auto) 2.0, Monocytes # (Auto) 1.0, Eosinophils # (Auto) 0.3, Basophils # (Auto) 0.1, Immature Granulocyte # (Auto) 0.1, Urine Creatinine 108, Urine Protein/Creatinine Ratio 0.16, Sodium Level 136, Potassium Level 3.8, Chloride Level 107, Carbon Dioxide Level 17L, Anion Gap 12, Blood Urea Nitrogen 7, Creatinine 0.74, Estimat Glomerular Filtration Rate 110, BUN/Creatinine Ratio 9, Glucose Level 90, Uric Acid 5.0, Calcium Level 8.9, Corrected Calcium 9.5, Total Bilirubin 0.2, Aspartate Amino Transf (AST/SGOT) 10, Alanine Aminotransferase (ALT/SGPT) 12, Alkaline Phosphatase 196H, Total Protein 6.5, Albumin 3.3, Syphilis Total Antibody Negative SON ELIZABETH MD Feb 16, 2023 23:04
[2023-02-16] MEDS ORDERED: Tetanus/Diphtheria/Pertussis (Acell) ADULT Vaccine 0.5 ML IM ONE (23:15)
[2023-02-16] MEDS ORDERED: BENZOCAINE/MENTHOL (DERMOPLAST) 56 ML CAN TP PRN (23:15)
[2023-02-16] MEDS ORDERED: ACETAMINOPHEN 500 MG TABLET PO PRN (23:15)
[2023-02-16] MEDS ORDERED: WITCH HAZEL(TUCKS) 40 EA JAR TOP PRN (23:15)
[2023-02-17] VITALS (10 sets, daily range): BP systolic 131–168; BP diastolic 73–96
[2023-02-17] MEDS: IBUPROFEN 600 MG TABLET PO SCH ×5 (00:12→23:42)
[2023-02-17] MEDS: ACETAMINOPHEN 500 MG TABLET PO PRN ×2 (04:03→23:43)
[2023-02-17 05:49] LABS: BASOPHILS % (AUTO) 0 % (0-10); EOSINOPHILS # (AUTO) 0.2 10^3/uL (0.0-0.3); EOSINOPHILS % (AUTO) 1 % (0-10); HEMATOCRIT 35 % (35-52); HEMOGLOBIN 12.4 g/dL (11.5-16.0); LYMPHOCYTES # (AUTO) 2.9 10^3/uL (1.0-4.0); LYMPHOCYTES % (AUTO) 21 % (12-44); MEAN CORPUSCULAR HEMOGLOBIN 33 pg (25-34); MEAN CORPUSCULAR HGB CONC 36 g/dL (32-36); MEAN CORPUSCULAR VOLUME 93 fL (80-99); MEAN PLATELET VOLUME 9.9 fL (9.0-12.2); MONOCYTES # (AUTO) 1.3 10^3/uL (0.0-1.0); MONOCYTES % (AUTO) 9 % (0-12); NEUTROPHILS # (AUTO) 9.4 10^3/uL (1.8-7.8); NEUTROPHILS % (AUTO) 68 % (42-75); PLATELET COUNT 233 10^3/uL (130-400)
[2023-02-17] MEDS ORDERED: CATHETER FLUSH 10 ML SYR IV SCH (06:00)
--- NOTE | 2023-02-17 08:18 | Postpartum Progress Note ---
Note Note Day # 1 Subjective: Patient had headache overnight, okay now. Complaining of cramping pain, vaginal pain and pain in right side that feels like a pulled muscle when she tries to get up from laying on her right. Ambulating, voiding. Tolerating a regular diet without nausea or vomiting. Normal lochia. Pain is not well controlled with oral pain medications. bottle feeding. Objective: Vital Signs 02/17/23 02/17/23 00:35 06:19 Temp 36.1 Pulse 55 Resp 16 B/P (MAP) 139/86 (103) Pulse Ox 97 O2 Delivery Room Air Physical Exam: General - Alert and oriented, no apparent distress Heart - RRR Lungs - CTAB Extremities - no edema Assessment: post- day # 1, status post spontaneous vaginal delivery. Hypertension, gestational vs chronic Recovering well, hemodynamically stable Plan: Routine care. BP remains intermittently elevated, treat if above 160/110, monitor closely Encourage breast feeding. Encourage ambulation. Ferrous sulfate supplementation. Plan for discharge tomorrow if blood pressure controlled. Vitals - Labs Vital Signs - I&O Vital Signs Date Time Temp Pulse Resp B/P (MAP) Pulse Ox O2 Delivery O2 Flow Rate FiO2 02/17/23 06:19 36.1 55 139/86 (103) 97 Room Air 02/17/23 04:04 155/82 (106) 02/17/23 03:57 36.1 61 168/73 (104) 100 Room Air 02/17/23 00:35 86 16 147/87 (107) Room Air 02/17/23 00:20 81 18 146/85 (105) Room Air 02/17/23 00:05 36.8 76 18 140/81 (100) Room Air 02/16/23 23:50 70 18 139/76 (97) Room Air 02/16/23 23:35 81 18 150/91 (110) Room Air 02/16/23 23:21 90 18 147/96 (113) Room Air 02/16/23 23:05 73 18 132/82 (99) Room Air 02/16/23 22:50 84 18 137/88 (104) Room Air 02/16/23 22:35 82 20 137/88 (104) Room Air 02/16/23 22:31 68 20 168/78 (108) Room Air 02/16/23 22:00 73 18 173/78 (109) Room Air 02/16/23 21:40 36.8 72 18 190/90 (123) 100 Room Air 02/16/23 21:20 90 18 143/83 (103) 100 Room Air 02/16/23 21:05 78 18 131/77 (95) 100 Room Air 02/16/23 20:50 99 18 125/66 (85) 100 Room Air 02/16/23 20:35 71 18 127/70 (89) 98 Room Air 02/16/23 20:20 36.9 81 18 128/72 (90) 99 Room Air 02/16/23 20:00 65 20 133/74 (93) 98 Room Air 02/16/23 19:45 73 18 129/70 (89) 99 Room Air 02/16/23 19:30 37.0 72 18 161/90 (113) 99 Room Air 02/16/23 19:15 87 18 143/92 (109) 99 Room Air 02/16/23 19:00 107 18 146/94 (111) 100 Room Air 02/16/23 18:45 98 18 146/94 (111) 100 Room Air 02/16/23 18:30 90 18 156/89 (111) 99 Room Air 02/16/23 18:15 99 18 171/97 (121) 98 Room Air 02/16/23 18:00 85 18 140/87 (104) 98 Room Air 02/16/23 17:45 96 18 142/82 (102) 99 Room Air 02/16/23 17:30 97 18 143/88 (106) 99 Room Air 02/16/23 17:15 97 18 136/92 (107) 99 Room Air 02/16/23 17:00 90 18 136/93 (107) 99 Room Air 02/16/23 16:45 90 18 136/93 (107) 99 Room Air 02/16/23 16:30 80 18 145/86 (105) 97 Room Air 02/16/23 16:15 36.8 106 18 139/84 (102) 99 Room Air 02/16/23 16:00 90 18 144/82 (102) 98 Room Air 02/16/23 15:45 102 18 135/78 (97) 98 Room Air 02/16/23 15:30 116 18 119/72 (88) 98 Room Air 02/16/23 15:15 86 18 129/78 (95) 96 Room Air 02/16/23 15:00 89 18 139/86 (103) 99 Room Air 02/16/23 14:45 36.5 90 18 132/79 (96) 99 Room Air 02/16/23 14:30 95 18 137/71 (93) 99 Room Air 02/16/23 14:25 100 18 132/67 (88) 99 Room Air 02/16/23 14:20 85 18 130/68 (88) 98 Room Air 02/16/23 14:15 93 18 119/62 (81) 99 Room Air 02/16/23 14:10 97 18 130/66 (87) 99 Room Air 02/16/23 14:05 95 18 148/89 (108) 99 Room Air 02/16/23 14:00 95 18 165/102 (123) 100 Room Air 02/16/23 13:55 98 18 160/96 (117) 100 Room Air 02/16/23 13:50 96 18 158/93 (114) 99 Room Air 02/16/23 13:45 90 18 153/96 (115) Room Air 02/16/23 13:30 100 18 147/95 (112) Room Air 02/16/23 13:15 100 18 141/95 (110) Room Air 02/16/23 13:00 88 18 152/92 (112) Room Air 02/16/23 12:45 99 18 150/95 (113) Room Air 02/16/23 12:30 106 18 141/97 (112) Room Air 02/16/23 11:52 36.8 116 18 142/93 (109) 99 Room Air 02/16/23 11:52 36.8 116 18 99 Room Air I & O 02/17/23 07:00 Intake Total 3600 ml Balance 3600 ml Labs Laboratory Tests 02/16/23 12:10: Urine Color YELLOW, Urine Clarity CLEAR, Urine pH 7.0, Urine Specific [place] 1.020, Urine Protein TRACEH, Urine Glucose (UA) NEGATIVE, Urine Ketones NEGATIVE, Urine Nitrite NEGATIVE, Urine Bilirubin NEGATIVE, Urine Urobilinogen 0.2, Urine Leukocyte Esterase 1+H, Urine RBC (Auto) NEGATIVE, Urine RBC RARE, Urine WBC 10-25H, Urine Squamous Epithelial Cells 10-25H, Urine Crystals PRESENTH, Urine Amorphous Sediment FEW SHAKIR URATESH, Urine Bacteria LARGEH, Urine Casts NONE, Urine Mucus NEGATIVE, Urine Trichomonas , Urine Culture Indicated YES 02/16/23 12:17: Urine Protein 17H, White Blood Count 10.4, Red Blood Count 3.99, Hemoglobin 13.5, Hematocrit 37, Mean Corpuscular Volume 93, Mean Corpuscular Hemoglobin 34, Mean Corpuscular Hemoglobin Concent 37H, Red Cell Distribution Width 12.7, Platelet Count 292, Mean Platelet Volume 10.0, Immature Granulocyte % (Auto) 1, Neutrophils (%) (Auto) 66, Lymphocytes (%) (Auto) 19, Monocytes (%) (Auto) 10, Eosinophils (%) (Auto) 3, Basophils (%) (Auto) 1, Neutrophils # (Auto) 6.9, Lymphocytes # (Auto) 2.0, Monocytes # (Auto) 1.0, Eosinophils # (Auto) 0.3, Basophils # (Auto) 0.1, Immature Granulocyte # (Auto) 0.1, Urine Creatinine 108, Urine Protein/Creatinine Ratio 0.16, Sodium Level 136, Potassium Level 3.8, Chloride Level 107, Carbon Dioxide Level 17L, Anion Gap 12, Blood Urea Nitrogen 7, Creatinine 0.74, Estimat Glomerular Filtration Rate 110, BUN/Creatinine Ratio 9, Glucose Level 90, Uric Acid 5.0, Calcium Level 8.9, Corrected Calcium 9.5, Total Bilirubin 0.2, Aspartate Amino Transf (AST/SGOT) 10, Alanine Aminotransferase (ALT/SGPT) 12, Alkaline Phosphatase 196H, Total Protein 6.5, Albumin 3.3, Syphilis Total Antibody Negative 02/17/23 05:33: White Blood Count 14.0H, Red Blood Count 3.72L, Hemoglobin 12.4, Hematocrit 35, Mean Corpuscular Volume 93, Mean Corpuscular Hemoglobin 33, Mean Corpuscular Hemoglobin Concent 36, Red Cell Distribution Width 12.6, Platelet Count 233, Mean Platelet Volume 9.9, Immature Granulocyte % (Auto) 1, Neutrophils (%) (Auto) 68, Lymphocytes (%) (Auto) 21, Monocytes (%) (Auto) 9, Eosinophils (%) (Auto) 1, Basophils (%) (Auto) 0, Neutrophils # (Auto) 9.4H, Lymphocytes # (Auto) 2.9, Monocytes # (Auto) 1.3H, Eosinophils # (Auto) 0.2, Basophils # (Auto) 0.0, Immature Granulocyte # (Auto) 0.1 SON BUTLER MD Feb 17, 2023 08:18
[2023-02-17] MEDS: DOCUSATE SODIUM 100 MG CAPSULE PO SCH ×2 (08:29→20:58)
[2023-02-17] MEDS: metroNIDAZOLE 500 MG TABLET PO SCH ×2 (08:29→20:59)
[2023-02-17] MEDS: PRENATAL VITAMIN TABLET PO SCH (08:29)
[2023-02-17] MEDS ORDERED: oxyCODONE IMMEDIATE RELEASE 5 MG TABLET PO PRN (08:30)
[2023-02-17] MEDS: TRIAMCINOLONE 0.5% OINT (KENALOG) 15 GM TUBE TOP SCH (08:49)
--- NOTE | 2023-02-17 12:18 | Anesthesia-Regional Post-Op ---
Regional Patient Condition Mental Status: Alert, Oriented x3 Circulation: Same as Pre-Op Headache: Absent Sensation: Full Recovery Motor Block: Absent Post Op Complications Complications None Follow Up Care/Instructions Patient Instructions None needed. Anesthesia/Patient Condition Patient is doing well, does C/O a sore back which is to be expected. No redness or warmth to the touch in her back. She has stable vital signs, no apparent adverse anesthesia problems. No complications reported per nursing. MATI VEGA DO Feb 17, 2023 12:18
[2023-02-18 03:50] VITALS: BP 127/64
[2023-02-18] MEDS: metroNIDAZOLE 500 MG TABLET PO SCH (08:45)
[2023-02-18] MEDS: TRIAMCINOLONE 0.5% OINT (KENALOG) 15 GM TUBE TOP SCH (08:45)
[2023-02-18] MEDS: IBUPROFEN 600 MG TABLET PO SCH (08:45)
[2023-02-18] MEDS: PRENATAL VITAMIN TABLET PO SCH (08:45)
[2023-02-18 08:47] VITALS: BP 155/79
[2023-02-18] MEDS: ACETAMINOPHEN 500 MG TABLET PO PRN (09:00)
[2023-02-18] MEDS ORDERED: IBUP-844 PO (11:40)
--- NOTE | 2023-02-18 11:46 | Discharge Summary ---
Discharge Summary Hospital Course Hospital Course Date of Admission: Feb 16, 2023 at 11:52 Admission Diagnosis : 1. IOL at 37w5d for polyhydraminos and hypertension Family Physician/Provider: Opal Elizabeth MD Date of Discharge: Discharge Diagnosis: [ ] 1. IOL at 37w5d for polyhydraminos and hypertension s/p on 02/16/23 Hospital Course: post- day # 2, status post spontaneous vaginal delivery. Hypertension, gestational vs chronic Recovering well, hemodynamically stable Plan: Routine care. BP improved with a couple of BP elevations (less than 160/100) Encourage breast feeding. Encourage ambulation. Ferrous sulfate supplementation. Discharge and will follow for BP check as out patient. Labs and Pending Lab Test: Microbiology 02/16/23 Urine Culture - Preliminary, Resulted Gram Pos Mixed Bacterial Ma[place] Home Meds Active Ibu (Ibuprofen) 600 Mg Tablet 600 Mg PO Q6H PRN Vitamin Tablet (Pnv95/Ferrous Fumarate/FA) 28 Mg Iron-800 Mcg Tablet 1 Each PO DAILY Assessment/Pt DC Instructions Follow up for BP check in 1 week. Follow up for post- check in 6wk. Discharge Diet: No Restrictions Discharge Physical Examination Allergies: Coded Allergies: No Known Drug Allergies (Unverified , 01/18/11) General Appearance: No Apparent Distress, WD/WN Neurologic/Psychiatric: Alert, Oriented x3 KAREN HARRIS DO Feb 18, 2023 11:46
== END 2023-02-18 12:40 | disposition home or self-care (01) | DRG 807 ==
LOC: LDRP 11:52
PROVIDERS: ADMIT Family Medicine; ATTEND Family Medicine
PROC: 10E0XZZ Delivery of Products of Conception, External Approach (ICD-10-PCS; principal; 2023-02-16)
PROC: 0HQ9XZZ Repair Perineum Skin, External Approach (ICD-10-PCS; 2023-02-16)
PROC: 3E033VJ Introduction of Other Hormone into Peripheral Vein, Percutaneous Approach (ICD-10-PCS; 2023-02-16)
DX: O13.4 Gestational [pregnancy-induced] hypertension without significant proteinuria, complicating childbirth (principal); Z37.0 Single live birth; O40.3XX0 Polyhydramnios, third trimester, not applicable or unspecified; O70.0 First degree perineal laceration during delivery; O69.81X0 Labor and delivery complicated by cord around neck, without compression, not applicable or unspecified; Z3A.37 37 weeks gestation of pregnancy
CPT/HCPCS: 36415; 80053; 81000; 82570; 84156; 84550; 85025; 86780; 86850; 86900; 86901; 87088

== ENCOUNTER 2023-02-24 09:18 | Observation (INO) | payer OTHER ==
[2023-02-24] VITALS (7 sets, daily range): BP systolic 146–177; BP diastolic 72–101
[2023-02-24 09:47] LABS: HEMATOCRIT 36 % (35-52); HEMOGLOBIN 12.9 g/dL (11.5-16.0); MEAN CORPUSCULAR HEMOGLOBIN 33 pg (25-34); MEAN CORPUSCULAR HGB CONC 36 g/dL (32-36); MEAN CORPUSCULAR VOLUME 91 fL (80-99); MEAN PLATELET VOLUME 9.2 fL (9.0-12.2); PLATELET COUNT 258 10^3/uL (130-400); WHITE BLOOD COUNT 7.6 10^3/uL (4.3-11.0)
[2023-02-24 10:00] LABS: ALBUMIN 3.3 GM/DL (3.2-4.5)
[2023-02-24 10:01] LABS: POTASSIUM 3.8 MMOL/L (3.6-5.0)
[2023-02-24 10:02] LABS: CALCIUM 8.7 MG/DL (8.5-10.1)
[2023-02-24 10:03] LABS: TOTAL PROTEIN 6.3 GM/DL (6.4-8.2)
[2023-02-24 10:05] LABS: BILIRUBIN,TOTAL 0.2 MG/DL (0.1-1.0)
[2023-02-24 10:07] LABS: CREATININE SERUM 0.95 MG/DL (0.60-1.30)
[2023-02-24] MEDS ORDERED: NIFEdipine Extended Release 30 MG TABLET PO NR (10:30)
[2023-02-24] MEDS ORDERED: hydrALAZINE INJECTION 20 MG/ML VIAL IV ONE (12:15)
[2023-02-24] MEDS ORDERED: KETOROLAC INJ 30 MG/ML VIAL IVP PRN (12:15)
--- NOTE | 2023-02-24 12:24 | History & Physical ---
HPI History of Present Illness: 32 yo F G4 that was discharged on 02/18 after having uncomplicated . Patient was induced for polyhydramnios and gHTN that did not require treatment. She was seen today in clinic for blood pressure check and was 165/100. She is having HAs but denies any abdominal pain. She has some chest pain but has been coughing for a few days and associated it with that. She is just spotting at this time. Source: patient Exam Limitations: no limitations Date seen by provider: Feb 24, 2023 Time Seen by Provider: 12:20 Attending Physician Opal Elizabeth MD PCP Admitting Physician: Attending Physician: Dilip Barrett MD Consult Date of Admission Home Medications Home Medications Reviewed patient Home Medication Reconciliation performed by pharmacy medication reconciliations technician support association and/or nursing. Patients Allergies have been reviewed. Allergies Coded Allergies: No Known Drug Allergies (Unverified , 01/18/11) [facility]-Pfrbuz Hx Patient Social History Drug of Choice: THC 2nd Hand Smoke Exposure: Yes Recent Hopitalizations: No Immunizations Up To Date Tetanus Booster (TDap): Less than 5yrs First/Initial COVID19 Vaccinat: 11/07/2020 Second COVID19 Vaccination Kanu: 12/08/2020 Past Medical History PMHx: Denies PSurgHx: tonsillectomy Family Medical History Family History: Blood clots FH: depression 19 MOTHER G8 SISTER FH: osteoporosis 19 MOTHER FHx: hyperlipidemia 19 MOTHER Review of Systems ([facility]) Constitutional: No dizziness, No fever, No malaise EENTM: no symptoms reported Respiratory: cough; No short of breath Cardiovascular: chest pain; No edema, No palpitations Gastrointestinal: no symptoms reported; No abdominal pain, No nausea, No vomiting Genitourinary: no symptoms reported; No dysuria, No hematuria Musculoskeletal: no symptoms reported Skin: no symptoms reported Psychiatric/Neurological: Headache Reviewed Test Results Reviewed Test Results Lab Laboratory Tests Test 02/24/23 09:30 02/24/23 09:42 Range/Units Urine Protein 14 H 6-12 MG/DL Urine Creatinine 127 H 30-125 MG/DL Urine Protein/Creatinine Ratio 0.11 White Blood Count 7.6 4.3-11.0 10^3/uL Red Blood Count 3.91 3.80-5.11 10^6/uL Hemoglobin 12.9 11.5-16.0 g/dL Hematocrit 36 35-52 % Mean Corpuscular Volume 91 80-99 fL Mean Corpuscular Hemoglobin 33 25-34 pg Mean Corpuscular Hemoglobin Concent 36 32-36 g/dL Red Cell Distribution Width 12.5 10.0-14.5 % Platelet Count 258 130-400 10^3/uL Mean Platelet Volume 9.2 9.0-12.2 fL Sodium Level 138 135-145 MMOL/L Potassium Level 3.8 3.6-5.0 MMOL/L Chloride Level 106 98-107 MMOL/L Carbon Dioxide Level 23 21-32 MMOL/L Anion Gap 9 5-14 MMOL/L Blood Urea Nitrogen 10 7-18 MG/DL Creatinine 0.95 0.60-1.30 MG/DL Estimat Glomerular Filtration Rate 82 BUN/Creatinine Ratio 11 Glucose Level 92 70-105 MG/DL Calcium Level 8.7 8.5-10.1 MG/DL Corrected Calcium 9.3 8.5-10.1 MG/DL Total Bilirubin 0.2 0.1-1.0 MG/DL Aspartate Amino Transf (AST/SGOT) 15 5-34 U/L Alanine Aminotransferase (ALT/SGPT) 22 0-55 U/L Alkaline Phosphatase 143 H 40-136 U/L Total Protein 6.3 L 6.4-8.2 GM/DL Albumin 3.3 3.2-4.5 GM/DL Physical Exam-([facility]) Physical Exam Vital Signs VS - Last 72 Hours, by Label 02/24/23 02/24/23 02/24/23 02/24/23 09:30 09:30 10:00 10:30 Temp 36.5 Pulse 85 56 53 Resp 20 20 20 B/P (MAP) 175/100 (125) 177/100 (125) Pulse Ox 98 98 O2 Delivery Room Air Room Air Room Air Room Air 02/24/23 11:05 Pulse 48 Resp 20 B/P (MAP) 175/98 (123) O2 Delivery Room Air Capillary Refill : Less Than 3 Seconds General Appearance: WD/WN, no apparent distress HEENT: PERRL/EOMI Neck: non-tender, supple Respiratory: chest non-tender, lungs clear, normal breath sounds, no respiratory distress, no accessory muscle use Cardiovascular: normal peripheral pulses, no edema, no murmur, bradycardia Gastrointestinal: normal bowel sounds, non tender, soft Back: no CVA tenderness, no vertebral tenderness Extremities: no pedal edema, no calf tenderness, normal capillary refill Neurologic/Psychiatric: alert, oriented x 3 Skin: normal color, warm/dry Lymphatic: no adenopathy Assessment/Plan Assessment/Plan Admission Status: Observation (1) HTN (hypertension) Assessment & Plan: - Patient may have chronic HTN superimposed with h/o gHTN, She was admitted to L&D and started on nifedipine and monitored. Blood pressure continues to climb. Patient then admitted to observation and given IV anti hypertensives and IV toradol for EDWARDS. She had some vague atypical CP and ECG was normal. Normal CBC/CMP and UProtien:Creatine ratio. Currently does not meet criteria for post pre eclampsia. DILIP BARRETT MD Feb 24, 2023 12:24
[2023-02-24] MEDS ORDERED: NIFEdipine Extended Release 30 MG TABLET PO SCH (18:00)
== END 2023-02-24 20:20 | disposition home or self-care (01) ==
LOC: WSo 09:18 → WS 09:18 → WSo 12:04 → WS 12:05
PROVIDERS: ADMIT Family Medicine; ATTEND Family Medicine
DX: O16.9 Unspecified maternal hypertension, unspecified trimester (principal)
CPT/HCPCS: 36415; 80053; 82570; 84156; 85027; 93005; 96374; 96375